=== PATIENT | female | born 2000 | race Caucasian/White ===

== ENCOUNTER 2021-12-24 10:20 | Inpatient (IN) | payer MEDICAID, SELFPAY ==
[2021-12-24] VITALS (31 sets, daily range): BP systolic 108–143; BP diastolic 55–84; PULSE 64–88; TEMP 36.3–36.8; O2SAT 81–100; BMI 36.0
[2021-12-24 10:24] LABS: ROM Internal Control Test YES-OK TO RESULT pt. (Internal QC)
[2021-12-24 10:31] LABS: ROM Patient Test POSITIVE (Negative)
--- NOTE | 2021-12-24 10:37 | PCM.HP.OB ---
HPI - General General Date of Admission: 12/24/21 HPI Narrative PAULETTE CAPPS, is a 21 F at 39.5 weeks gestation who presents to triage with leaking fluid and contractions. Patient reports water broke at 0830 and she continues to leak fluid. Positive movement. Reports irregular contractions. Maternal Data Information ANTHONY Calculator Estimated Delivery Date Method Current WG Current Estimate 12/26/21 Manual 39w 5d PFSH PFS Medical History (Updated 12/24/21 @ 13:14 by Ayla Ziegler CNM) Genital herpes affecting Home Medications acyclovir 400 mg PO TID 12/24/21 [History Last Taken 12/23/21 22:00] vit-iron fum-folic ac [Prena-Tab] 1 tab PO DAILY 12/24/21 [History Last Taken 12/23/21 10:00] Allergy/AdvReac Type Severity Reaction Status Date / Time Penicillins [PCN] Allergy Hives Verified 12/24/21 09:56 Surgical History History of surgery Social History Smoking Status: Never smoker History Elective abortions Hx Para 0 Spontaneous abortions Hx # Term Pregnancies Ectopic pregnancies Hx # Pregnancies Multiple births # of living children NST FHR Rate Baby A Baseline: 140 Variability:: Moderate Accelerations:: 15 x 15 Decelerations:: None NST Reactive:: Yes FHR Category:: Category I Uterine Activity:: 2-5 minutes ROS Eyes Eyes: Denies blurry vision, change in vision or spots in vision ENT HEENT: Denies dizziness or headache(s) Cardiovascular Cardiovascular: Denies abdominal pain, chest pain or dyspnea Respiratory/Chest Respiratory/Chest: Denies cough, dyspnea, shortness of breath at rest or shortness of breath with exertion Gastrointestinal Gastrointestinal: Denies abdominal pain, diarrhea or vomiting Genitourinary Genitourinary: Denies change in urinary stream, difficulty urinating or dysuria Musculoskeletal Musculoskeletal: Reports none Integumentary Integumentary: Denies rash Neurologic Neurologic: Denies dizziness, headache(s), memory loss or weakness Psychiatric Psychiatric: Reports none Vital Signs Vital Signs Vital Signs: 12/24/21 10:00 12/24/21 10:01 Temperature 97.6 F L Temperature Source Temporal Pulse Rate 86 86 Blood Pressure 123/74 H 123/74 H BP Systolic 123 123 BP Diastolic 74 74 Pulse Ox 98 Weight Weight: 203 lb 4.259 oz Body Mass Index (BMI) 36.0 Physical Exam Const alert, oriented x3 and no apparent distress General Appearance: cooperative Orientation / Consciousness: awake Exam Limitations: no limitations HEENT normocephalic Head and Scalp: normal to inspection Eyes General Eye: normal appearance of both eyes Neck full ROM and no lymphadenopathy Lymph Lymphatic: no lymphadenopathy noted Chest inspection of chest normal Resp normal respiratory effort, normal air movement and clear to auscultation bilaterally Effort and Inspection: able to speak in complete sentences and symmetric chest movement Cardio regular rate and regular rhythm GI normal to inspection, nondistended, normoactive bowel sounds Manual OB Exam: presentation cephalic, dilated 3, effaced 90 and station -1 Amniotic Fluid: meconium-stained Back/Spine normal ROM Extremity full ROM and no calf tenderness Skin no rashes or lesions noted General Skin Exam: no breakdown Neuro oriented x3 and CN's II-XII intact bilaterally Psych mental status grossly normal and thought process normal Labs Labs Labs: Blood Type A POSITIVE Antibody Screen NEGATIVE Hct 35.4 % (37-47) L Hgb 12.3 g/dL (12.0-15.0) Rubella- immune HB- neg HC- neg HIV- NR RPR- NR GBS- positive Assessment & Plan (1) 39 weeks gestation of : (2) Spontaneous rupture of amniotic membranes: (3) Meconium in amniotic fluid: (4) Positive GBS test: PLAN: Meconium stained fluid noted by RN CE- /-1 Cephalic Admit to labor and delivery Line Up Examiner notified Routine labs Start IV and run fluids per orders GBS positive- allergy to PCN, start Vancomycin IV q 8 hours during labor Hx. HSV- taking acyclovir prophylactically - no visual outbreak Epidural when indicated Dr. Ford notified of admission and is collaborating physician
[2021-12-24] MEDS: Lactated Ringers 1,000 ML 50 ML IV (10:40)
--- NOTE | 2021-12-24 10:43 | PCM.RX.CS ---
Consult Type of Consult: New start Suspected Infection: Other Goal Trough: 10-15 mcg/mL Pharmacy Plan for Drug Dosing: NEW START IV VANCOMYCIN Consulting Physician: Aleida AMAYA Indication: WP GBS Goal Trough: 10-15 SrCr: N/A CrCl: N/A Vancomcyin Dose: 1750mg (20 mg/kg) Q8H to start at 1100 12/24/21 Pending Level: Vancomycin trough @ 1030 12/25/21, if not yet delivered Pharmacy Service will continue to monitor and adjust dosing as required. Labs to be done on [date and time ordered]: Vancomycin trough @ 1030 12/25/21, if not yet delivered
[2021-12-24 10:54] LABS: Absolute Lymphocyte Count 1.25 X10^3/uL (0.83-4.51); Absolute Neutrophil Count 12.1 X10^3/uL (2.0-7.7); Basophil# 0.03 X10^3/uL; Basophil% 0.2 % (0-1); Eosinophil# 0.05 X10^3/uL; Eosinophils% 0.3 % (0-5); Hematocrit 35.4 % (37-47); Hemoglobin 12.3 g/dL (12.0-15.0); Lymphocyte # 1.25 X10^3/ul (0.83-4.51); Lymphocyte % 8.7 % (19-41); Mean Corp Hgb Conc 34.7 g/dL (32-36); Mean Corpuscular Volume 89.2 fL (81-99); Mean Platelet Vol. 11.8 fl (6.2-12.0); Monocyte# 0.84 X10^3/uL; Monocyte% 5.8 % (0-10); NRBC Flagged by Analyzer 0 % (0-5); Neutrophil # 12.14 X10^3/uL (2.7-7.7); Neutrophil % 84.4 % (47-70); Platelet Count 158 K/mm3 (150-450); RBC Distribution Width CV 12.8 % (11.6-14.6); RBC Distribution Width SD 41.2 fl (35.1-43.9); Red Blood Count 3.97 M/mm3 (4.2-5.4); White Blood Count 14.4 K/mm3 (4.4-11.0)
--- NOTE | 2021-12-24 17:00 | PCM.PN.OB ---
Subjective Subjective Patient seen at bedside. Breathing through contractions. Using Nitrous oxide for pain control. Objective Data Objective Data Vital Signs: Vital Signs Temp Pulse BP Pulse Ox 98.1 F 78 138/60 H 100 12/24/21 16:03 12/24/21 17:02 12/24/21 17:00 12/24/21 17:02 Weight: 203 lb 4.259 oz Body Mass Index (BMI) 36.0 Intake & Output: Intake and Output for Last 24 Hours 12/22/21 12/23/21 12/24/21 23:59 23:59 23:59 Intake Total 551.67 / 551.67 Balance 551.67 / 551.67 Lab / Micro Data Result Diagrams: 12/24/21 10:35 Labs: Laboratory Results - last 24 hr 12/24/21 10:15: Vag Amniotic Fld Detect POSITIVE H 12/24/21 10:35: WBC 14.4 H, RBC 3.97 L, Hgb 12.3, Hct 35.4 L, MCV 89.2, MCH 31.0, MCHC 34.7, RDW Std Deviation 41.2, RDW Coeff of Stef 12.8, Plt Count 158, MPV 11.8, Immature Gran % (Auto) 0.600, Neut % (Auto) 84.4 H, Lymph % (Auto) 8.7 L, [place] % (Auto) 5.8, Eos % (Auto) 0.3, Baso % (Auto) 0.2, Absolute Neuts (auto) 12.1 H, Absolute Lymphs (auto) 1.25, Nucleated RBC % 0 12/24/21 10:35: Blood Type A POSITIVE, Antibody Screen NEGATIVE Micro: Microbiology 12/24/21 10:25 Nasal Secretion SARS-CoV-2 Antigen (Rapid) - Final ROS Eyes Eyes: Denies blurry vision, change in vision or spots in vision ENT HEENT: Denies dizziness or headache(s) Cardiovascular Cardiovascular: Denies abdominal pain, chest pain or dyspnea Respiratory/Chest Respiratory/Chest: Denies cough, dyspnea, shortness of breath at rest or shortness of breath with exertion Gastrointestinal Gastrointestinal: Denies abdominal pain, diarrhea or vomiting Genitourinary Genitourinary: Denies change in urinary stream, difficulty urinating or dysuria Musculoskeletal Musculoskeletal: Reports none Integumentary Integumentary: Denies rash Neurologic Neurologic: Denies dizziness, headache(s), memory loss or weakness Psychiatric Psychiatric: Reports none Physical Exam Const alert and no apparent distress General Appearance: cooperative and comfortable Exam Limitations: no limitations HEENT normocephalic Eyes General Eye: normal appearance of both eyes Neck full ROM General: normal visual inspection Chest Chest: symmetrical chest wall rise Resp normal respiratory effort and normal air movement Effort and Inspection: symmetric chest movement Auscultation: clear to auscultation bilaterally Cardio regular rate and regular rhythm GI normal to inspection, nondistended, normoactive bowel sounds Back/Spine normal ROM Extremity full ROM and no calf tenderness General Extremity: normal exam except as noted Skin no rashes or lesions noted Neuro CN's II-XII intact bilaterally Psych mental status grossly normal Assessment & Plan (1) Genital herpes affecting : QUALIFIERS: Trimester: unspecified trimester Qualified Code(s): O98.319 - Other infections with a predominantly sexual mode of transmission complicating , unspecified trimester; A60.09 - Herpesviral infection of other urogenital tract (2) Positive GBS test: (3) Meconium in amniotic fluid: (4) Spontaneous rupture of amniotic membranes: (5) 39 weeks gestation of : PLAN: CE- /0 Cat. 1 tracing- some periods of mild variability, no decelerations Continue present position changes Continue Nitrous oxide for pain control Anticipate
[2021-12-24] MEDS: Oxytocin 30 units/NS 500 ml 30 UNITS/500 ML IV.SOLN 334 UNITS IV (18:32)
--- NOTE | 2021-12-24 18:41 | CPS ---
Dayshift RT responded to WP first and was present for 35 minutes. Nightshift RT relieved dayshift @1820.
--- NOTE | 2021-12-24 19:16 | OP.PCM_ITS ---
Assessment & Plan (1) (spontaneous vaginal delivery): (2) Laceration, obstetrical, first degree: Maternal Data Information ANTHONY Calculator Estimated Delivery Date Method Current WG Current Estimate 12/26/21 Manual 39w 5d Vaginal Delivery Maternal Presentation Maternal Presentation: Spontaneous Rupture of Membranes Maternal Presentation: at 39.5 weeks gestation that presented with spontaneous rupture of membranes and spontaneous labor. Operative Information Date of Procedure: 12/24/21 Pre-Operative Diagnosis: Term gestation, spontaneous rupture of membranes, spontaneous labor Post-Operative Diagnosis: Same, live female infant Surgery / Procedure Performed: Spontaneous Vaginal Delivery Type of Anesthesia: Local with 1% Lidocaine Estimated Blood Loss: 250 Time of Delivery: 18:28 Findings Description of Procedure: Provided bedside support to patient with pushing. With maternal effort, head delivered followed immediately by anterior shoulder and remainder of body with minimal, easy downward traction. Vigorous female placed on maternal abdomen and was attended to by nursing staff and data governance analyst. Pitocin IV started for active management of the third stage of labor. Cord clamped and cut by FOB after 3 minute delay. Infant placed immediately skin to skin with patient. Placenta delivered spontaneously and intact. 3 vessel cord. Meconium stained placenta. Dr. Ford called to bedside to assess vaginal laceration due to laceration apex being close to clitoral maldonado. First degree vaginal laceration repaired in usual fashion after placing local anesthesia. Hemostasis obtained. Fundus firm 3 below U. EBL 250 cc. Patient and boding well at this time. Presentation: Vertex Amniotic Membrane Rupture Type: Spontaneous Time of Membrane Rupture: 0830 Amniotic Fluid Description: Moderate meconium Placental Delivery Description: Spontaneous Placenta Disposition: [facility] Cord Vessel Description: 3 Vessels Cord Entanglement: None A Gender: Female (1 minute): 8 (5 minute): 9 Delayed Cord Clamping: Yes Post Vaginal Delivery Medications Given After Delivery: IV Pitocin Episiotomy Description: None Laceration: 1st degree Complication Complications: None
[2021-12-24] MEDS: Naproxen 500 MG Tablet PO (20:52)
[2021-12-24] MEDS: Benzocaine/Lanolin/Aloe Vera 1 SPRAY EACH TOPICAL (20:52)
[2021-12-25] VITALS (15 sets, daily range): BP systolic 109–127; BP diastolic 55–72; PULSE 69–87; RESP 16–17; TEMP 36.3–36.8; O2SAT 96–99
--- NOTE | 2021-12-25 07:02 | PCM.PN.OB ---
Subjective Subjective Patient seen at bedside. infant. Ambulating and voiding without difficulty. Lochia decreasing. Desires discharge home tomorrow due to needing more support. Objective Data Objective Data Vital Signs: Vital Signs Temp Pulse Resp BP Pulse Ox 97.8 F 69 16 109/55 L 98 12/25/21 04:00 12/25/21 04:31 12/25/21 04:00 12/25/21 04:31 12/25/21 04:31 Oxygen Delivery Method Room Air Weight: 203 lb 4.259 oz Body Mass Index (BMI) 36.0 Intake & Output: Intake and Output for Last 24 Hours 12/23/21 12/24/21 12/25/21 23:59 23:59 23:59 Intake Total 2835.00 / 2835.00 Output Total 300 / 300 600 / 600 Balance 2535.00 / 2535.00 -600 / -600 Lab / Micro Data Result Diagrams: 12/24/21 10:35 Labs: Laboratory Results - last 24 hr 12/24/21 10:15: Vag Amniotic Fld Detect POSITIVE H 12/24/21 10:35: WBC 14.4 H, RBC 3.97 L, Hgb 12.3, Hct 35.4 L, MCV 89.2, MCH 31.0, MCHC 34.7, RDW Std Deviation 41.2, RDW Coeff of Stef 12.8, Plt Count 158, MPV 11.8, Immature Gran % (Auto) 0.600, Neut % (Auto) 84.4 H, Lymph % (Auto) 8.7 L, [place] % (Auto) 5.8, Eos % (Auto) 0.3, Baso % (Auto) 0.2, Absolute Neuts (auto) 12.1 H, Absolute Lymphs (auto) 1.25, Nucleated RBC % 0 12/24/21 10:35: Blood Type A POSITIVE, Antibody Screen NEGATIVE Micro: Microbiology 12/24/21 10:25 Nasal Secretion SARS-CoV-2 Antigen (Rapid) - Final ROS Eyes Eyes: Denies blurry vision, change in vision or spots in vision ENT HEENT: Denies dizziness or headache(s) Cardiovascular Cardiovascular: Denies abdominal pain, chest pain or dyspnea Respiratory/Chest Respiratory/Chest: Denies cough, dyspnea, shortness of breath at rest or shortness of breath with exertion Gastrointestinal Gastrointestinal: Denies abdominal pain, diarrhea or vomiting Genitourinary Genitourinary: Denies change in urinary stream, difficulty urinating or dysuria Musculoskeletal Musculoskeletal: Reports none Integumentary Integumentary: Denies rash Neurologic Neurologic: Denies dizziness, headache(s), memory loss or weakness Physical Exam Const alert and no apparent distress General Appearance: cooperative and comfortable Exam Limitations: no limitations HEENT normocephalic Eyes General Eye: normal appearance of both eyes Neck full ROM General: normal visual inspection Chest Chest: symmetrical chest wall rise Resp normal respiratory effort and normal air movement Effort and Inspection: symmetric chest movement Auscultation: clear to auscultation bilaterally Cardio regular rate and regular rhythm GI normal to inspection, nondistended, normoactive bowel sounds Back/Spine normal ROM Extremity full ROM and no calf tenderness General Extremity: normal exam except as noted Skin no rashes or lesions noted Neuro CN's II-XII intact bilaterally Psych mental status grossly normal Assessment & Plan (1) Laceration, obstetrical, first degree: (2) (spontaneous vaginal delivery): PLAN: PPD 1 Routine care support Anticipate discharge home tomorrow
[2021-12-25] MEDS: Naproxen 500 MG Tablet PO ×2 (07:47→17:36)
[2021-12-25] MEDS: Senna/Docusate Sodium 1 Tablet PO (07:47)
--- NOTE | 2021-12-25 08:17 | NURSING ---
This RN at bedside for assessment with student nurse and agrees with his assessment and vital signs
[2021-12-25] MEDS: Acetaminophen 500 MG Tablet 1000 MG PO (12:27)
[2021-12-26 02:12] VITALS: BP 116/65; PULSE 74; RESP 18
--- NOTE | 2021-12-26 08:21 | PCM.PROGNOTE ---
Subjective Subjective Patient seen at bedside, doing well. Patient reports good pain control. Mild lochia. Breast-feeding without concerns. Voiding without difficulty. Patient ready for DC home today. Objective Data Objective Data Vital Signs: Vital Signs Temp Pulse Resp BP Pulse Ox 98.2 F 74 18 116/65 98 12/25/21 20:51 12/26/21 02:12 12/26/21 02:12 12/26/21 02:12 12/25/21 12:24 Oxygen Delivery Method Room Air Weight: 92.2 kg Body Mass Index (BMI) 36.0 Intake & Output: Intake and Output for Last 24 Hours 12/24/21 12/25/21 12/26/21 23:59 23:59 23:59 Intake Total 2835.00 / 2835.00 Output Total 300 / 300 600 / 600 Balance 2535.00 / 2535.00 -600 / -600 Lab / Micro Data Result Diagrams: 12/24/21 10:35 Micro: Microbiology 12/24/21 10:25 Nasal Secretion SARS-CoV-2 Antigen (Rapid) - Final Physical Exam Const alert and oriented x3 General Appearance: cooperative HEENT normocephalic Neck General: normal visual inspection GI soft to palpation and non-distended GI Narrative: Fundus firm Extremity normal to inspection and no calf tenderness Skin no rashes or lesions noted Neuro oriented x3 and CN's II-XII intact bilaterally Psych mental status grossly normal Assessment & Plan Assessment/Plan (1) Laceration, obstetrical, first degree: (2) (spontaneous vaginal delivery): PLAN: PPD#2 , Doing well Routine care pain mgmt ambulation dc home
[2021-12-26 08:22] VITALS: BP 137/75; PULSE 64; PULSE 65; RESP 16; TEMP 36.6; O2SAT 82; O2SAT 98
--- NOTE | 2021-12-26 08:24 | PCM.DC ---
Discharge Instructions Diet Discharge Diet: No restrictions Activity May resume sexual activity in: 6-8 weeks Dressing / Incision Call your doctor if you observe: Fever of 101 or Higher, Inability to urinate, Using more than 1 pad per hour and Uncontrolled pain Follow Up Care Please Follow Up With: Donna Monae MD When: 1-2 weeks post and again at 6 weeks post . [phone] Test Results: Test results from this visit will be discussed in further detail at your follow-up appointment, if applicable. Discharge Plan Admission Admit Date/Time: 12/24/21 10:20 Attending Provider: Ayla Ziegler Primary Care Provider: Care Physician,No Primary Discharge Orders/Prescriptions Prescriptions: Continued vit-iron fum-folic ac 65 mg iron- 1 mg Tablet 1 tab PO DAILY RF: 0 acyclovir 400 mg Tablet 400 mg PO TID RF: 0 Referrals / Follow Up: Care Physician,No Primary [Primary Care Provider] - Disposition Disposition (needs filled in before D/C Order can be placed): Home, Self Care
== END 2021-12-26 11:40 | disposition home or self-care (01) | DRG 560 ==
LOC: WPOUT 10:22 → WP 10:22
PROVIDERS: Admitting Provider Advanced Practice Midwife; Referring Provider Advanced Practice Midwife; Visit Provider Advanced Practice Midwife
DX: O99.824 Streptococcus B carrier state complicating childbirth (principal); Z37.0 Single live birth; O98.32 Other infections with a predominantly sexual mode of transmission complicating childbirth; A60.00 Herpesviral infection of urogenital system, unspecified; O77.0 Labor and delivery complicated by meconium in amniotic fluid; O70.0 First degree perineal laceration during delivery; Z20.822 Contact with and (suspected) exposure to COVID-19; Z3A.39 39 weeks gestation of pregnancy; Z79.899 Other long term (current) drug therapy
CPT/HCPCS: 59025; 59050; 84112; 85025; 86850; 86900; 86901; 87426; 94799; 99218; 99251; J7040; J7120; G0378; G0463

== ENCOUNTER 2023-10-05 06:20 | Inpatient (IN) | payer MEDICAID, SELFPAY ==
[2023-10-05] VITALS (40 sets, daily range): BP systolic 103–120; BP diastolic 56–75; PULSE 64–97; RESP 16; TEMP 36.7–37.2; O2SAT 98–100; BMI 35.6
--- OUTSIDE RECORDS SUMMARY | 2023-10-05 06:14 | XMS RPT_ITS | CCD ---
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 look at the ingredients to be sure. Note that there is no difference between red raspberry leaf and raspberry leaf. [employer] or [employer] Raspberry Three Bridges Tea are two good brands. The red raspberry leaf teas that we recommend are 100% red raspberry leaf. Other teas labeled as raspberry are often a blend of rosehips, hibiscus, raspberry leaves, and raspberry flavor. So they may not be as effective. The teas to avoid are raspberry-flavored herbal teas, which may have ingredients like hibiscus, peri hips, apples, elderberries, natural and artificial raspberry flavors. Teas like this don t contain raspberry leaf at all and thus won t offer any of the potential benefits of RRLT outlined in this article. The Circle 1 Network Circuit www.SmartDocs (Teknowmics) I named this 'circuit' after my friend Angelanano Carcamo, who shared and discussed it with me when I was working with a client whose labor seemed to be stalled out and no longer progressing... This circuit is useful to help get the baby lined up, ideally, in the Left Occiput Anterior (CRICKET) Position, both before labor begins and when some corrections need to be done during labor. Prenatally, this position set can help to rotate a baby. As a natural method of induction, this can help get things going if baby just needed a gentle nudge of position to set things off. To the best of my knowledge, this group of positions will not hurt a baby that is already lined up correctly. - Rachel Hassan Before you Begin..... This circuit takes at least 90 minutes to complete so clear your schedule and make mental preparations so you can relax in your environment. The second step requires a lot of pillows so gather them up before beginning Before starting, you should empty your bladder! Have a nice drink nearby, and make sure it has a straw! If you are having contractions, this circuit should bedone through contractions, try not to change positions between steps Step One: Open-knee Chest Stay in this position for 30 minutes, start in cat/cow, then drop your chest as low as you can to the bed or the floor and your bottom as high as you can. Knees should be fairly wide apart, and the angle between the torso/thighs should be wider than 90 degrees. Wiggle around, prop with lots of pillows and use this time to get totally relaxed. This position allows the baby to scoot out of the pelvis a bit and gives them room to rotate, shift their head position, etc. If the person finds it helpful,careful positioning with a rebozo under the belly, with gentle tension from a support person behindcan help maintain this position for the full 30minutes. Step Two: Exaggerated Left Side Lying Roll to your left side, bringing your top leg as high as possible and keeping your bottom leg straight. Roll forward as much as possible,again using a lot of pillows. Sink into the bed and relax some more. If you fall asleep, that's totally okay and you can stay there! If not, stay here for at least another half an hour. Try and get your top right leg up towards your head and get as rolled over onto your belly as much as possible. If you repeat the circuit during labor, try alternating left and right sides. We know the photo the left is actually right side... just flip the image in your head. Step Three: Moving and Lunges Lunge, walk stairs facing sideways, 2 at a time, (have a machine deburrer downstairs of you!), take a walk outside with one foot on the curb and the other on the street, sit on a ball and hula- anything that's upright and putting your pelvis in open, asymmetrical positions. Spend at least 30 minutes doing this one as well to give your baby a chance to move down. If you are lunging or stair or curb walking, you should lunge/walk/go up stairs in the direction that feels better to you. The villegas with the lunge is that the toes of the higher leg and mom's belly button should be at right angles. Do not lunge over your knee, that closes the pelvis. Angela Lancaster Carlos Alberto: Circuit Creator - www.essentia healthcollective.c blas Hassan, MILAGRO, BDT (RALPH), LCCE, FACCE: Supporting Content - www.rachelSolar Power Partnersedward.[employer] Awa Alberto: Photography - www.[email or web address].[employer] Soo Parekh CD/CDT (SULEMAN): Print and Technician Support Engineer - www.[employer] Masterminds The Circle 1 Network Circuit www.SmartDocs (Teknowmics) SEQUENTIAL SCREENINGS The [facility] offers sequential screenings for women who are interested in screenings for chromosomal abnormalities and certain defects during a . The sequential screen combines ultrasound and blood tests to determine the risk of chromosomal abnormalities, including Down's Syndrome (Trisomy 21) and Trisomy 18, as well as open neural tube defects including spina bifida. Ultrasound examination is performed between 11 weeks and 13 weeks gestational age. Blood tests are drawn after the ultrasound and again later in the between 15 and 21 weeks gestational age. Please let your physician know if you are interested in this testing. It will require an appointment with our electromedical equipment technician. This is not an ultrasound performed by a physician in our office during a routine visit. SIGNS AND SYMPTOMS OF LABOR 1. Contractions every 10 minutes or more often 2. Clear, pink, or brownish fluid (water) leaking from vagina 3. Feeling that baby is pushing down, pressure 4. Low, dull backache 5. Cramps that feel like a period 6. Cramps with or without diarrhea If you notice any of the above symptoms, contact our office at [phone] and ask to speak with a nurse. After hours, you can call doctors registry at [phone] OR call [facility] at [phone] and ask to have the doctor admissions dean paged. If you consider this an emergency, dial 9-1-4 or go to your nearest emergency department. NEED HELP? Are you dealing with a violent or abusive relationship? Are you a victim of rape or sexual assult? Call [facility] ([place]) 24 hour Crisis Hotline: 416.390.3397 or 707-335-1778. MANUAL Your Guide to a Healthy manual is now on-line. Visit [email or web address] [email or web address] to download your free copy documented in this encounter [facility] 09-29-2023 Note HNO ID: [id number] Author: ?, ?, ? Service: ? Author Type: ? 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 Updated OB/PEDS field. OB/PEDS Patient Identified by Name and : YES, via phone Outreach Outcome/Action OB/PEDS field updated Did you use a PCP flex slot to schedule this appointment? N/A Navigation Signature: Vidhi Morin [facility] September 29, 2023 12:25 PM [facility] 09-29-2023 Note HNO ID: [id number] Author: ?, ?, ? Service: ? Author Type: ? Type: Progress Notes Filed: 09/29/2023 12:03 Note Text: POPULATION HEALTH NAVIGATION OUTREACH Action/FYI 3rd attempt- Called and left another voicemail for patient to call me back directly. OB/PEDS Patient Identified by Name and : NO Outreach Outcome/Action Unable to reach patient: Left message Did you use a PCP flex slot to schedule this appointment? N/A Navigation Signature: Vidhi Morin [facility] September 29, 2023 12:00 PM [facility] 09-26-2023 Note Patient Outreach (IMELDA GARCIA) PAULETTE MUHAMMAD ([id number]) 89 F Date Time Provider Department 09/26/23 VIDHI MORIN ([facility]) BEATAV During your visit today, we recorded the following information about you: Vidhi Samayoa 09/26/2023 11:40 AM Signed POPULATION HEALTH NAVIGATION OUTREACH Action/FYI Called and left a voicemail for patient to call me back directly Mychart message sent OB/PEDS Patient Identified by Name and : NO Outreach Outcome/Action Unable to reach patient: Left message MyChart message sent Did you use a PCP flex slot to schedule this appointment? N/A Reason for Outreach Payer: Payor: [facility] MEDICAID / Plan: [employer]ICA[employer] [place] / Product Type: Medicaid / Care Gap Reviewed:: N/A Reminder: Reminder note to check Health Maintenance for items below Health Maintenance items due: HPV Vaccine(2 - 2-dose series) due on 09/23/2012 Meningococcal B Vaccine: Consider Based On Risk(1 of 2 - Patient Seeks Protection) Never done DTaP,Tdap,Td Vaccine(7 - Td or Tdap) due on 03/23/2022 Depression Assessment due on 08/01/2023 Navigation Signature: Vidhi Reynolds September 26, 2023 11:40 AM Vidhi Samayoa 09/29/2023 12:03 PM Signed POPULATION HEALTH NAVIGATION OUTREACH Action/I 3rd attempt- Called and left another voicemail for patient to call me back directly. OB/PEDS Patient Identified by Name and : NO Outreach Outcome/Action Unable to reach patient: Left message Did you use a PCP flex slot to schedule this appointment? 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 Updated OB/PEDS field. OB/PEDS Patient Identified by Name and : YES, via phone Outreach Outcome/Action OB/PEDS field updated Did you use a PCP flex slot to schedule this appointment? N/A Navigation Signature: Vidhi Reynolds September 29, 2023 12:25 PM Allergies As of Date: 09/26/2023 Noted Allergy Reaction PENICILLINS 05/11/2021 4 - Hives Comments: childhood reaction Date Reviewed: 09/26/2023 Reviewed by: Vidhi Palacios MA - Fully Assessed Reason for Visit: Population Health Navigation Outreach [3910] Cmt: OB/PEDS Prescriptions as of 09/29/2023 - famotidine (PEPCID) 20 mg tablet Take 1 tablet by mouth two times a day. - acyclovir (ZOVIRAX) 400 mg tablet Take 1 tablet by mouth three times a day. - multivitamin (CLASSIC ) 28 mg iron- 800 mcg tab(s) Take 1 tablet by mouth once daily. Problem List As Of Date 09/26/2023 Noted Resolved History of herpes genitalis [Z86.19] 05/11/2021 Patient request for diagnostic testing [Z01.89] 05/11/2021 03/21/2023 Encounter for supervision of high risk pregnanc*11/04/2021 Positive GBS test [B95.1] 12/11/2021 03/21/2023 Obesity (BMI 30.0-34.9) [E66.9] 03/21/2023 Rubella non-immune status, antepartum [O09.899,*04/06/2023 Elevated glucose [R73.09] 07/20/2023 Obesity during in third trimester [O9*08/29/2023 Positive GBS test [B95.1] 09/13/2023 Encounter Status:Closed by VIDHI SAMAYOA on 09/26/23 [facility] 09-26-2023 Note HNO ID: [id number] Author: ?, ?, ? Service: ? Author Type: ? Type: Progress Notes Filed: 09/26/2023 11:40 Note Text: POPULATION HEALTH NAVIGATION OUTREACH Action/FYI Called and left a voicemail for patient to call me back directly Echo ithart message sent OB/PEDS Patient Identified by Name and : NO Outreach Outcome/Action Unable to reach patient: Left message [employer],Inchart message sent Did you use a PCP flex slot to schedule this appointment? N/A Reason for Outreach Payer: Payor: [place] / Plan: [place] [employer] MEDICA[facility] / Product Type: Medicaid / Care Gap Reviewed:: N/A Reminder: Reminder note to check Health Maintenance for items below Health Maintenance items due: HPV Vaccine(2 - 2-dose series) due on 09/23/2012 Meningococcal B Vaccine: Consider Based On Risk(1 of 2 - Patient Seeks Protection) Never done DTaP,Tdap,Td Vaccine(7 - Td or Tdap) due on 03/23/2022 Depression Assessment due on 08/01/2023 Navigation Signature: Vidhi Reynolds September 26, 2023 11:40 AM [facility] 09-19-2023 Miscellaneous Notes SW- Some nausea and abdominal discomfort. No vb, lof, ctx's. Good FM PE: Gen- NAD, well appearing Abd- Soft, gravid, NT Ext- No edema See flowsheet A/p 37 wk gestation - Start pepcid - Cont acyclvor - Weekly visits and reviewed reasons to call Korey Jones DO documented in this encounter [facility] 09-19-2023 Instructions Shanel Rincon Ma - 09/19/2023 10:40 AM EST SEQUENTIAL SCREENINGS The [facility] offers sequential screenings for women who are interested in screenings for chromosomal abnormalities and certain defects during a . The sequential screen combines ultrasound and blood tests to determine the risk of chromosomal abnormalities, including Down's Syndrome (Trisomy 21) and Trisomy 18, as well as open neural tube defects including spina bifida. Ultrasound examination is performed between 11 weeks and 13 weeks gestational age. Blood tests are drawn after the ultrasound and again later in the between 15 and 21 weeks gestational age. Please let your physician know if you are interested in this testing. It will require an appointment with our electromedical equipment technician. This is not an ultrasound performed by a physician in our office during a routine visit. SIGNS AND SYMPTOMS OF LABOR 1. Contractions every 10 minutes or more often 2. Clear, pink, or brownish fluid (water) leaking from vagina 3. Feeling that baby is pushing down, pressure 4. Low, dull backache 5. Cramps that feel like a period 6. Cramps with or without diarrhea If you notice any of the above symptoms, contact our office at [phone] and ask to speak with a nurse. After hours, you can call doctors registry at [phone] OR call [facility] at [phone] and ask to have the doctor admissions dean paged. If you consider this an emergency, dial 6-1-8 or go to your nearest emergency department. NEED HELP? Are you dealing with a violent or abusive relationship? Are you a victim of rape or sexual assult? Call [facility] [place] ([facility] 24 hour Crisis Hotline: 389.764.6966 or 166-441-8358. MANUAL Your Guide to a Healthy manual is now on-line. Visit [email or web address] [email or web address] to download your free copy documented in this encounter [facility] 09-12-2023 Miscellaneous Notes S: Paulette Muhammad is a 22 year old female who presents at 36 weeks 0 days, ANTHONY 10/10/2023, by Last Menstrual Period for a routine visit. Denies headache, visual changes, chest pain, shortness of breath, vaginal bleeding, leakage of fluid, or dysuria. Feeling well, no complaints. O: See flow sheet Gen: No apparent distress Abd: Gravid, nontender TWG 19 lb S=D Bedside US to confirm cephalic presentation ASSESSMENT/PLAN: 1. Encounter for supervision of high risk in third trimester, antepartum - 2. Obesity during in third trimester - 3. 36 weeks gestation of 4. 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 I have re-performed the HPI, Physical Examination, Assessment and Plan. Elzbieta Echavarria APRN.CNM documented in this encounter [facility] 09-12-2023 Instructions Rafael Miller Cma 09/12/2023 9:17 AM EST SEQUENTIAL SCREENINGS The [facility] offers sequential screenings for women who are interested in screenings for chromosomal abnormalities and certain defects during a . The sequential screen combines ultrasound and blood tests to determine the risk of chromosomal abnormalities, including Down's Syndrome (Trisomy 21) and Trisomy 18, as well as open neural tube defects including spina bifida. Ultrasound examination is performed between 11 weeks and 13 weeks gestational age. Blood tests are drawn after the ultrasound and again later in the between 15 and 21 weeks gestational age. Please let your physician know if you are interested in this testing. It will require an appointment with our electromedical equipment technician. This is not an ultrasound performed by a physician in our office during a routine visit. SIGNS AND SYMPTOMS OF LABOR 1. Contractions every 10 minutes or more often 2. Clear, pink, or brownish fluid (water) leaking from vagina 3. Feeling that baby is pushing down, pressure 4. Low, dull backache 5. Cramps that feel like a period 6. Cramps with or without diarrhea If you notice any of the above symptoms, contact our office at [phone] and ask to speak with a nurse. After hours, you can call doctors registry at [phone] OR call [facility] at [phone] and ask to have the doctor admissions dean paged. If you consider this an emergency, dial 9-5 or go to your nearest emergency department. NEED HELP? Are you dealing with a violent or abusive relationship? Are you a victim of rape or sexual assult? Call [facility] ([place]) 24 hour Crisis Hotline: 519.475.2672 or 903-800-6453. MANUAL Your Guide to a Healthy manual is now on-line. Visit [email or web address] to download your free copy documented in this encounter [facility] 07-20-2023 Miscellaneous Notes Addended by: DONNA RAINES on: 07/20/2023 11:19 AM Modules accepted: Orders DM-Pt doing well. Denies vaginal Bleeding, Leaking fluid, or regular Contractions. Pt reports good movement Physical Exam: Gen: female in no apparent distress Abd: soft, Gravid. Non tender to palpation. See flow sheet A/P: @ 28.2 weeks 1) declines tdap 2) larc form signed and declined 3) Labs today 4) RTO 2 wks 5) Kick counts reviewed 6) growth us 32 weeks Donna Monae MD documented in this encounter [facility] 07-20-2023 Instructions Tricia Mello Ma - 07/20/2023 10:57 AM EST SEQUENTIAL SCREENINGS The [facility] offers sequential screenings for women who are interested in screenings for chromosomal abnormalities and certain defects during a . The sequential screen combines ultrasound and blood tests to determine the risk of chromosomal abnormalities, including Down's Syndrome (Trisomy 21) and Trisomy 18, as well as open neural tube defects including spina bifida. Ultrasound examination is performed between 11 weeks and 13 weeks gestational age. Blood tests are drawn after the ultrasound and again later in the between 15 and 21 weeks gestational age. Please let your physician know if you are interested in this testing. It will require an appointment with our electromedical equipment technician. This is not an ultrasound performed by a physician in our office during a routine visit. SIGNS AND SYMPTOMS OF LABOR 1. Contractions every 10 minutes or more often 2. Clear, pink, or brownish fluid (water) leaking from vagina 3. Feeling that baby is pushing down, pressure 4. Low, dull backache 5. Cramps that feel like a period 6. Cramps with or without diarrhea If you notice any of the above symptoms, contact our office at [phone] and ask to speak with a nurse. After hours, you can call doctors registry at [phone] OR call [facility] at [phone] and ask to have the doctor admissions dean paged. If you consider this an emergency, dial 0-6-3 or go to your nearest emergency department. NEED HELP? Are you dealing with a violent or abusive relationship? Are you a victim of rape or sexual assult? Call [facility] ([place]) 24 hour Crisis Hotline: 480.717.6067 or 538-342-8184. MANUAL Your Guide to a Healthy manual is now on-line. Visit [email or web address] [email or web address] to download your free copy documented in this encounter [facility] 06-20-2023 Miscellaneous Notes S: Paulette Muhammad is a 22 year old female who presents at 24 weeks gestation for a routine visit. Positive movement. Denies headache, visual changes, chest pain, shortness of breath, vaginal bleeding, leakage of fluid, or dysuria. Feeling well, no complaints. O: See flow sheet Gen: No apparent distress Abd: Gravid, nontender ASSESSMENT/PLAN: 1. 24 weeks gestation of - ICD9: V22.2, ICD10: Z3A.24 (primary diagnosis) 2. Encounter for supervision of other normal in second trimester - ICD9: V22.1, ICD10: Z34.82 P: 1) PTL precautions reviewed and when to call 2) RTO 4 weeks for LILIYA with labs Ayla Amaya APRN.CNM documented in this encounter [facility] 06-20-2023 Instructions Vidhi Palacios MA - 06/20/2023 11:08 AM EST SEQUENTIAL SCREENINGS The [facility] offers sequential screenings for women who are interested in screenings for chromosomal abnormalities and certain defects during a . The sequential screen combines ultrasound and blood tests to determine the risk of chromosomal abnormalities, including Down's Syndrome (Trisomy 21) and Trisomy 18, as well as open neural tube defects including spina bifida. Ultrasound examination is performed between 11 weeks and 13 weeks gestational age. Blood tests are drawn after the ultrasound and again later in the between 15 and 21 weeks gestational age. Please let your physician know if you are interested in this testing. It will require an appointment with our electromedical equipment technician. This is not an ultrasound performed by a physician in our office during a routine visit. SIGNS AND SYMPTOMS OF LABOR 1. Contractions every 10 minutes or more often 2. Clear, pink, or brownish fluid (water) leaking from vagina 3. Feeling that baby is pushing down, pressure 4. Low, dull backache 5. Cramps that feel like a period 6. Cramps with or without diarrhea If you notice any of the above symptoms, contact our office at [phone] and ask to speak with a nurse. After hours, you can call doctors registry at [phone] OR call [facility] at [phone] and ask to have the doctor admissions dean paged. If you consider this an emergency, dial [phone]- or go to your nearest emergency department. NEED HELP? Are you dealing with a violent or abusive relationship? Are you a victim of rape or sexual assult? Call [facility] ([place]) 24 hour Crisis Hotline: 636.167.8818 or 227-520-6935. MANUAL Your Guide to a Healthy manual is now on-line. Visit [email or web address] [email or web address] to download your free copy documented in this encounter [facility] 06-14-2023 Note HNO ID: [id number] Author: Blade Fabian APRN.CIRCUIT BOARD REPAIR TECHNICIAN Service: ? Author Type: Nurse Practitioner Type: Progress Notes Filed: 06/14/2023 1:27 PM Note Text: Chief Complaint Patient presents with: [facility] CARRIE Paulette Muhammad is a 22 year old female who presents here today for Above Complaints.. [facility]. Patient is currently 23 weeks and has a 1.5 year old. Patient reports she is feeling better now that she is in her second trimester. Past medical history, appointments, medications, allergies reviewed. Previous Medical History PAST MEDICAL HISTORY Diagnosis Date Herpes, genital Rubella non-immune status, antepartum 04/06/2023 Previous Surgical History PAST SURGICAL HISTORY Procedure Laterality Date TONSILLECTOMY HX Family History FAMILY HISTORY Problem Relation Age of Onset No Known Problems Mother No Known Problems Father No Known Problems Sister No Known Problems Sister No Known Problems Brother No Known Problems Maternal Grandmother No Known Problems Maternal Grandfather No Known Problems Paternal Grandmother No Known Problems Paternal Grandfather Patient Allergies ALLERGIES Allergen Reactions Penicillins Hives childhood reaction Current Medications Current Outpatient Medications on File Prior to Visit Medication Sig psyllium husk (METAMUCIL ORAL) Take by mouth. OMEPRAZOLE ORAL Take by mouth as needed. multivitamin (CLASSIC ) 28 mg iron- 800 mcg tab(s) Take 1 tablet by mouth once daily. No current facility-administered medications on file prior to visit. Social History Social History Tobacco Use Smoking status: Never Smokeless tobacco: Never Vaping Use Vaping Use: Never used Substance Use Topics Alcohol use: Yes Comment: rare Drug use: Never Review of Symptoms REVIEW OF SYSTEMS GENERAL: No weight loss, malaise or fevers HEENT: No changes in hearing or vision, no nose bleeds or other nasal problems NECK: Negative for lumps, goiter, pain and significant neck swelling RESPIRATORY: Negative for cough, hemoptysis, wheezing, COPD, dyspnea or shortness of breath CARDIOVASCULAR: Negative for chest pain, leg swelling, hypertension, CHF or palpitations GI: No nausea, vomiting, or diarrhea : No history of dysuria, frequency or incontinence GAMEMASTER: Negative for abnormal vaginal bleeding, abnormal vaginal discharge MUSCULOSKELETAL: Negative for joint pain or swelling, back pain or muscle pain SKIN: Negative for lesions, rash, and itching PSYCH: Negative for sleep disturbance, mood disorder and recent psychosocial stressors HEMATOLOGY/LYMPHOLOGY: Negative for prolonged bleeding, bruising easily or swollen nodes ENDOCRINE: Negative for cold or heat intolerance, polyuria, polydipsia and goiter NEURO: No history of headaches, syncope, paralysis, seizures or tremors EXAM: BP 112/70 Pulse 80 Resp 14 Wt 82.1 kg (181 lb) LMP 01/03/2023 (Within Days) BMI 32.06 kg/m? General Appearance: Well appearing, alert, in no acute distress, well-hydrated, well nourished.. Skin: Skin color, texture, turgor normal, no suspicious rashes or lesions. Neck: Supple, no adenopathy; thyroid symmetric, normal size, no bruits. Lungs: Lungs clear to auscultation. No wheezing, rhonchi, rales.. Heart: RRR without murmur, gallop, or rubs. No ectopy. Abdomen: Normal abdominal exam, Abdomen soft, non-tender. Bowel sounds normal. No masses, organomegaly. Musculoskeletal: No joint swelling, deformity, or tenderness. Peripheral Pulses: Normal. Neurologic: Gait normal. Reflexes normal and symmetric. Sensation grossly intact.. Health Maintenance List HPV Vaccine(2 - 2-dose series) due on 09/23/2012 Meningococcal B Vaccine: Consider Based On Risk(1 of 2 - Patient Seeks Protection) Never done DTaP,Tdap,Td Vaccine(7 - Td or Tdap) due on 03/23/2022 Depression Assessment Never done Influenza Vaccine(1) due on 01/29/2024 Covid-19 Vaccine(1) due on 06/14/2024 GC (Gonorrhea) Screening (18-24) due on 03/21/2024 Chlamydia Screening (18-24) due on 03/21/2024 Pap Testing due on 05/20/2024 Hepatitis B Vaccine Completed Hepatitis C Screening Completed HIV Screening Completed ASSESSMENT/PLAN: 1. Wellness examination - ICD9: V70.0, ICD10: Z00.00 (primary diagnosis) - Counseled on healthy diet and regular exercise - Recommend vitamin containing 0.4 mg of folic acid - Calcium intake with supplements or by diet of 1000 mg/day for under 50, 9971-0243 mg/day for 50+ - Discussed need and benefit for weight loss. BMI 32.06 kg/(m2) - Depression screening tool completed and reviewed with patient. Based on score and interview, patient is not at risk for depression and recommended no further intervention at this time. - Follow up for annual exam in one year 2. Obesity (BMI 30.0-34.9) - ICD9: 278.00, ICD10: E66.9 -currently Blade Fabian APRN.[facility] 06-14-2023 History of Presen t illness Narrative Chief Complaint Patient presents with: [facility] Paulette Muhammad is a 22 year old female who presents here today for Above Complaints.. [facility]. Patient is currently 23 weeks and has a 1.5 year old. Patient reports she is feeling better now that she is in her second trimester. Past medical history, appointments, medications, allergies reviewed. Previous Medical History PAST MEDICAL HISTORY Diagnosis Date Herpes, genital Rubella non-immune status, antepartum 04/06/2023 Previous Surgical History PAST SURGICAL HISTORY Procedure Laterality Date TONSILLECTOMY HX Family History FAMILY HISTORY Problem Relation Age of Onset No Known Problems Mother No Known Problems Father No Known Problems Sister No Known Problems Sister No Known Problems Brother No Known Problems Maternal Grandmother No Known Problems Maternal Grandfather No Known Problems Paternal Grandmother No Known Problems Paternal Grandfather Patient Allergies ALLERGIES Allergen Reactions Penicillins Hives childhood reaction Current Medications Current Outpatient Medications on File Prior to Visit Medication Sig psyllium husk (METAMUCIL ORAL) Take by mouth. OMEPRAZOLE ORAL Take by mouth as needed. multivitamin (CLASSIC ) 28 mg iron- 800 mcg tab(s) Take 1 tablet by mouth once daily. No current facility-administered medications on file prior to visit. Social History Social History Tobacco Use Smoking status: Never Smokeless tobacco: Never Vaping Use Vaping Use: Never used Substance Use Topics Alcohol use: Yes Comment: rare Drug use: Never Review of Symptoms REVIEW OF SYSTEMS GENERAL: No weight loss, malaise or fevers HEENT: No changes in hearing or vision, no nose bleeds or other nasal problems NECK: Negative for lumps, goiter, pain and significant neck swelling RESPIRATORY: Negative for cough, hemoptysis, wheezing, COPD, dyspnea or shortness of breath CARDIOVASCULAR: Negative for chest pain, leg swelling, hypertension, CHF or palpitations GI: No nausea, vomiting, or diarrhea : No history of dysuria, frequency or incontinence GAMEMASTER: Negative for abnormal vaginal bleeding, abnormal vaginal discharge MUSCULOSKELETAL: Negative for joint pain or swelling, back pain or muscle pain SKIN: Negative for lesions, rash, and itching PSYCH: Negative for sleep disturbance, mood disorder and recent psychosocial stressors HEMATOLOGY/LYMPHOLOGY: Negative for prolonged bleeding, bruising easily or swollen nodes ENDOCRINE: Negative for cold or heat intolerance, polyuria, polydipsia and goiter NEURO: No history of headaches, syncope, paralysis, seizures or tremors EXAM: BP 112/70 Pulse 80 Resp 14 Wt 82.1 kg (181 lb) LMP 01/03/2023 (Within Days) BMI 32.06 kg/m General Appearance: Well appearing, alert, in no acute distress, well-hydrated, well nourished.. Skin: Skin color, texture, turgor normal, no suspicious rashes or lesions. Neck: Supple, no adenopathy; thyroid symmetric, normal size, no bruits. Lungs: Lungs clear to auscultation. No wheezing, rhonchi, rales.. Heart: RRR without murmur, gallop, or rubs. No ectopy. Abdomen: Normal abdominal exam, Abdomen soft, non-tender. Bowel sounds normal. No masses, organomegaly. Musculoskeletal: No joint swelling, deformity, or tenderness. Peripheral Pulses: Normal. Neurologic: Gait normal. Reflexes normal and symmetric. Sensation grossly intact.. Health Maintenance List HPV Vaccine(2 - 2-dose series) due on 09/23/2012 Meningococcal B Vaccine: Consider Based On Risk(1 of 2 - Patient Seeks Protection) Never done DTaP,Tdap,Td Vaccine(7 - Td or Tdap) due on 03/23/2022 Depression Assessment Never done Influenza Vaccine(1) due on 01/29/2024 Covid-19 Vaccine(1) due on 06/14/2024 GC (Gonorrhea) Screening (18-24) due on 03/21/2024 Chlamydia Screening (18-24) due on 03/21/2024 Pap Testing due on 05/20/2024 Hepatitis B Vaccine Completed Hepatitis C Screening Completed HIV Screening Completed ASSESSMENT/PLAN: 1. Wellness examination - ICD9: V70.0, ICD10: Z00.00 (primary diagnosis) - Counseled on healthy diet and regular exercise - Recommend vitamin containing 0.4 mg of folic acid - Calcium intake with supplements or by diet of 1000 mg/day for under 50, 1592-5820 mg/day for 50+ - Discussed need and benefit for weight loss. BMI 32.06 kg/(m^2) - Depression screening tool completed and reviewed with patient. Based on score and interview, patient is not at risk for depression and recommended no further intervention at this time. - Follow up for annual exam in one year 2. 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 Recommend pelvic rest until no further bleeding for 1 week. Thick discharge could be semen. Give PTL precautions 21w0d documented in this encounter [facility] 05-24-2023 Miscellaneous Notes 2nd risk assessment form submitted 05/24/23 Mulu Watkins RN documented in this encounter [facility] 04-18-2023 Miscellaneous Notes SW- Some round ligament pain. No vb, lof. PE: Gen- NAD, well appearing Abd- Soft, NT See flowsheet A/p 15 wk gestation - Discussed second trimester blood work - RTO anatomy US and OB visit after Korey Jones DO documented in this encounter [facility] 04-18-2023 Instructions Korey Jones MD - 04/18/2023 10:23 AM EDT Go into the lab between 04/26/23 and 05/10/23 to get blood work SEQUENTIAL SCREENINGS The [facility] offers sequential screenings for women who are interested in screenings for chromosomal abnormalities and certain defects during a . The sequential screen combines ultrasound and blood tests to determine the risk of chromosomal abnormalities, including Down's Syndrome (Trisomy 21) and Trisomy 18, as well as open neural tube defects including spina bifida. Ultrasound examination is performed between 11 weeks and 13 weeks gestational age. Blood tests are drawn after the ultrasound and again later in the between 15 and 21 weeks gestational age. Please let your physician know if you are interested in this testing. It will require an appointment with our electromedical equipment technician. This is not an ultrasound performed by a physician in our office during a routine visit. SIGNS AND SYMPTOMS OF LABOR 1. Contractions every 10 minutes or more often 2. Clear, pink, or brownish fluid (water) leaking from vagina 3. Feeling that baby is pushing down, pressure 4. Low, dull backache 5. Cramps that feel like a period 6. Cramps with or without diarrhea If you notice any of the above symptoms, contact our office at [phone] and ask to speak with a nurse. After hours, you can call doctors registry at [phone] OR call [facility] at [phone] and ask to have the doctor admissions dean paged. If you consider this an emergency, dial or go to your nearest emergency department. NEED HELP? Are you dealing with a violent or abusive relationship? Are you a victim of rape or sexual assult? Call [facility] ([place]) 24 hour Crisis Hotline: 798.231.6300 or 819-010-6397. MANUAL Your Guide to a Healthy manual is now on-line. Visit [email or web address] to download your free copy documented in this encounter [facility] 04-01-2023 Miscellaneous Notes Noted. Rahel Brambila LPN ' Done Kendra Ibrahim MD Patient here for First Trimester Screening. Order pending documented in this encounter [facility] 04-01-2023 Instructions Clara Demarco RN - 04/01/2023 11:00 AM EDT SEQUENTIAL TESTING PROCESS Sequential Screen First Trimester Today you are currently: 12w4d weeks 04/01/2023: Ultrasound and blood test. Sequential Screen Second Trimester (16-17 Weeks Gestation) When you are called with your results, the nurse will give the optimal draw dates for the Sequential screen second trimester. Blood testing can be done at any [facility] lab. Please report to the any cloth washer office waterfront director for the Sequential Part 2 requisition and order before reporting to the lab. Your weight will need to be documented for testing. Please note: -No appointment is need for your second blood draw. -Office hours are 8 am to 4:30 pm. -Please have testing done prior to 12 noon on Tuesday's -Once the sequential testing is started, in the first trimester the only follow-up will be for the sequential screen second trimester. Please don't have a Quad screen ordered by another provider. If you or your Provider have any questions please call your maternal medicine office, for east side please call [phone] or for the West side call [phone] and ask for the the nurse. Thank you. documented in this encounter [facility] 03-22-2023 Miscellaneous Notes Initial Risk Assessment Form submitted on March 22, 2023 Clara Villarreal RN documented in this encounter [facility] 03-21-2023 Note HNO ID: [id number] Author: Renetta Lane APRN.SRINIVASAN Service: ? Author Type: Nurse Practitioner Type: Progress Notes Filed: 03/21/2023 1:59 PM Note Text: INITIAL OB ASSESSMENT OB Provider: Renetta Lane CNP HPI: Paulette is a 22 year old White here to establish Obstetrical Care. Patient's last menstrual period was 01/03/2023 (within days). from OB Dating Form. Cycles regular was unplanned but accepted Complaints: nausea without vomiting OB History T1 L1 SAB0 IAB0 Ectopic0 Multiple0 Live Births1 Previous history: Prior : never History of 4th degree laceration: No History of shoulder dystocia: No History of Hypertensive disorders including pre-eclampsia, chronic hypertension or gestational hypertension: No History of gestational diabetes: No Patient's Risk Screening for delivery: Have you had a prior roblero between 20w and 36w6d?: No MEDICAL/PSYCHOSOCIAL HISTORY: History of hemorrhage or bleeding concerns: No Thyroid Disease: No History of chronic hypertension: No History of pre-existing diabetes: No ABO/RH(D) Date Value Ref Range Status 06/17/2021 A POSITIVE Final BMI 31.35 kg/(m2) History of abnormal pap: No Prior treatment for cervical dysplasia: none. History of STDs: HSV Tobacco use: No Caffeine use: Yes Drug use: No Alcohol use: No Multivitamin with Folic acid: Yes Gnosticism or heritage: No Would refuse blood transfusion if medically necessary: No Are you currently employed? Yes, Occupation: [employer] Do you have any history of depression, anxiety, PTSD, eating disorders or other mood problems: No Do you have any safety concerns or history of traumatic events that you would like to discuss with your provider: No How often does this describe you? I don't have enough money to pay my bills: Never Within the past 12 months, have you worried that your food would run out before you had money to buy more: Never In the past 12 months, has lack of reliable transportation kept you from going to medical appointments or work, or from keeping things needed for daily living: Never In the past 12 months, have you had any concerns about having a place to live, or about the condition or quality of your housing: Never Are there any cultural or spiritual needs we should be aware of: No Depression: denies symptoms of depression. OB Depression and Anxiety Screening- This Encounter (since 03/20/2023) None GENETIC SCREENING: Partner present: No Patient verbalized knowledge of partner family health history: Yes Do you or your partner have any personal or family history of defects not previously discussed: No Do you have history of a complicated by anomaly, genetic condition, or demise: No Marital Status:Single Partner: Name: ANJUM Age: 23 Occupation: unemployed Gender: Male History of STDs: None PAST MEDICAL HISTORY Diagnosis Date Herpes, genital PAST SURGICAL HISTORY Procedure Laterality Date TONSILLECTOMY HX Current Outpatient Medications Medication Sig Dispense Refill psyllium husk (METAMUCIL ORAL) Take by mouth. OMEPRAZOLE ORAL Take by mouth as needed. Breast Pump Double electric breast pump as covered by insurance (Patient not taking: Reported on 01/26/2023) 1 Each 0 multivitamin (CLASSIC ) 28 mg iron- 800 mcg tab(s) Take 1 tablet by mouth once daily. No current facility-administered medications for this visit. Allergies As of Date: 03/21/2023 Allergen Noted Reaction PENICILLINS 05/11/2021 Hives Fully Assessed 03/21/2023 Does patient have penicillin allergy: Yes, plan for allergy testing. REVIEW OF SYSTEMS: GENERAL: Negative for: Fever or Chills HEENT: Negative for: Headache, Impaired Vision, Ringing in Ears, Nosebleeds NECK: Negative for: Swelling, Pain, Stiffness RESPIRATORY: Negative for: Cough, Shortness of breath, Wheezing GASTROINTESTINAL: Positive for: Constipation and + nausea MUSCULOSKELETAL: Negative for: Muscle or joint pain, stiffness, Joint swelling NEUROLOGIC/PSYCHIATRIC: Negative for: Weakness, Paralysis, Numbness, Tingling, Tremor, Anxiety, Depression, Memory loss SKIN: Negative for: Rash, Itching GENITOURINARY: Negative for: vaginal itching, vaginal discharge, hematuria or dysuria PHYSICAL EXAM: BP 112/72 Ht 5' 3 (1.60m) Wt 177 lb (80.3kg) LMP 01/03/2023 BMI 31.36 kg/(m2). GENERAL: pleasant in no apparent distress DERMATOLOGY: Normal, without lesions, non-icteric, and non-hirsute NECK: Supple, full range of motion, no adenopathy, and thyroid normal CHEST: Normal inspiratory effort BREAST: soft, non-tender, symmetric, no dominant mass, normal nipple-areolar complex, no lymphadenopathy, and no nipple discharge ABDOMEN: soft, non-tender, and no masses NEURO: alert and oriented x3,exam grossly non-focal PELVI (more content not included)... [facility] 03-07-2023 Miscellaneous Notes Addended by: RAFAEL MILLER CMA on: 03/07/2023 04:00 PM Modules accepted: Orders documented in this encounter [facility] 03-07-2023 Note HNO ID: [id number] Author: Ayla Amaya APRN.CNM Service: ? Author Type: Cadd Operator Type: Progress Notes Filed: 03/07/2023 2:03 PM Note Text: Paulette Muhammad is a 22 year old female who presents for problem visit of missed menses. Stated LMP was around 01/03/23 ( approximate) and she skipped cycle in January. Took HPT on 02/20/23 that was positive. Has 14 month old daughter and her and FOB are going through a rough time. Still daughter at night. She is accepting of the . Having some mild nausea without vomiting. Denies any vaginal bleeding, cramping or pain. Here today for confirmation of . REVIEW OF SYSTEMS Abdomen: No bloating, early satiety, indigestion, or increased flatulence. No abdominal pain, nausea, vomiting, diarrhea, or constipation. Bladder: No dysuria, gross hematuria, urinary frequency, urinary urgency, or incontinence. Breast: No breast lumps, nipple d/c, overlying skin changes, redness or skin retraction. Expanded ROS: N/A Allergies and current medication updated:Yes EXAM: BP 100/62 Wt 179 lb 6.4 oz (81.4kg) LMP 01/03/2023 GENERAL: pleasant, female in no apparent distress HEENT: Normocephalic and atraumatic NECK: Supple and full range of motion DERMATOLOGY: Normal and without lesions NEURO: alert and oriented x3,exam grossly non-focal EXTREMITIES: normal ASSESSMENT/PLAN: 1. Encounter for test, result positive - ICD9: V72.42, ICD10: Z32.01 (primary diagnosis) - OBSTETRIC ULTRASOUND WHI- DATING US due to uncertain LMP - PNV daily - Vitamin B6 and Unisom for nausea 2. Lactating mother - ICD9: V24.1, ICD10: Z39.1 RTO- for dating ultrasound and NOB Ayla Amaya APRN.[facility] 03-07-2023 History of Presen t illness Narrative Paulette Muhammad is a 22 year old female who presents for problem visit of missed menses. Stated LMP was around 01/03/23 ( approximate) and she skipped cycle in January. Took HPT on 02/20/23 that was positive. Has 14 month old daughter and her and FOB are going through a rough time. Still daughter at night. She is accepting of the . Having some mild nausea without vomiting. Denies any vaginal bleeding, cramping or pain. Here today for confirmation of . REVIEW OF SYSTEMS Abdomen: No bloating, early satiety, indigestion, or increased flatulence. No abdominal pain, nausea, vomiting, diarrhea, or constipation. Bladder: No dysuria, gross hematuria, urinary frequency, urinary urgency, or incontinence. Breast: No breast lumps, nipple d/c, overlying skin changes, redness or skin retraction. Expanded ROS: N/A Allergies and current medication updated:Yes EXAM: BP 100/62 Wt 179 lb 6.4 oz (81.4kg) LMP 01/03/2023 GENERAL: pleasant, female in no apparent distress HEENT: Normocephalic and atraumatic NECK: Supple and full range of motion DERMATOLOGY: Normal and without lesions NEURO: alert and oriented x3,exam grossly non-focal EXTREMITIES: normal ASSESSMENT/PLAN: 1. Encounter for test, result positive - ICD9: V72.42, ICD10: Z32.01 (primary diagnosis) - OBSTETRIC ULTRASOUND WHI- DATING US due to uncertain LMP - PNV daily - Vitamin B6 and Unisom for nausea 2. Lactating mother - ICD9: V24.1, ICD10: Z39.1 RTO- for dating ultrasound and NOB Ayla Amaya APRN.CNM documented in this encounter [facility] 01-28-2023 Miscellaneous Notes Pt notified via [employer]. Rahel Brambila LPN' ----- Message from Ayla Amaya APRN.CNM sent at 01/28/2023 4:11 PM EDT ----- Positive for bacterial vaginosis. RX for Flagyl 500 mg PO BID x 7 days sent to pharmacy. Finish all medications. No alcohol during and up to 24 hours after last dose. No intercourse during treatment. Ayla Amaya APRN.CNM documented in this encounter [facility] 01-26-2023 Note HNO ID: [id number] Author: Elzbieta Echavarria APRN.CNM Service: ? Author Type: Cadd Operator Type: Progress Notes Filed: 01/26/2023 2:54 PM Note Text: Home Stager offered: Patient declines. Paulette is a 22 year old who presents for an annual gynecologic exam with complaints, . Complaint of feeling fuzzy, blurry vision, dizziness, nausea, low energy, feels like she is shutting down. This has started in the last couple of months and felt like it started the first day of her menses. Over the last 3 weeks has continued on and off. Body is achy all over. Usually lasts for several hours on and off. Does not have primary care provider. Menses: cycles every 30 days and 4 days of flow. Contraception: none HPV vaccine: No Last Pap: 05/29/2021 normal HPV: N/A History of abnormal pap: No Last mammogram: never Sexually active: Yes Time with current partner: Almost 3 years Pain with intercourse: No Postcoital bleeding: No Exercise: Walking Diet: Regular diet Seatbelt use: Yes OB History T1 L1 SAB0 IAB0 Ectopic0 Multiple0 Live Births1 Semi Driver History LMP: 01/03/2023 (Within Days), Unknown Age at Menarche: Age at First : Age at Menopause: Semi Driver History Comments: Sexual Activity: Yes; Male Contraception: No contraception data on record PAST MEDICAL HISTORY Diagnosis Date Herpes, genital PAST SURGICAL HISTORY Procedure Laterality Date TONSILLECTOMY HX FAMILY HISTORY Problem Relation Age of Onset No Known Problems Mother No Known Problems Father No Known Problems Sister No Known Problems Sister No Known Problems Brother No Known Problems Maternal Grandmother No Known Problems Maternal Grandfather No Known Problems Paternal Grandmother No Known Problems Paternal Grandfather SOCIAL HISTORY Social History Tobacco Use Smoking status: Never Smokeless tobacco: Never Vaping Use Vaping Use: Never used Substance Use Topics Alcohol use: Yes Comment: rare Drug use: Never REVIEW OF SYSTEMS Abdomen: No abdominal pain, vomiting, diarrhea, or constipation. No bloating, early satiety, indigestion, or increased flatulence. Bladder: No dysuria, gross hematuria, urinary frequency, urinary urgency, or incontinence. Breast: No breast lumps, nipple d/c, overlying skin changes, redness or skin retraction. Allergies and current medication updated:Yes EXAM: BP 108/60 Ht 5' 3 (1.60m) Wt 179 lb (81.2kg) LMP 01/03/2023 BMI 31.72 kg/(m2). GENERAL: pleasant, female in no apparent distress HEENT: Normocephalic, atraumatic, mucus membranes moist, and no lesions NECK: Supple, full range of motion, no adenopathy, and thyroid normal DERMATOLOGY: Normal, without lesions, non-icteric, and non-hirsute BREAST: soft, non-tender, symmetric, no dominant mass, normal nipple-areolar complex, no lymphadenopathy, and no nipple discharge CHEST: Normal inspiratory effort ABDOMEN: soft, non-tender, and no masses PELVIC: external genitalia normal, normal Bartholin's glands, urethra, Pipestone's glands, no vulvar lesions, no cervical lesions, good vaginal support, white vaginal discharge present, normal appearing perineal body and perianal region BIMANUAL: uterus normal size, shape and consistency, no adnexal masses, and non-tender RECTOVAGINAL: deferred. NEURO: alert and oriented x3,exam grossly non-focal EXTREMITIES: normal ASSESSMENT/PLAN: 1. Encounter for gynecological examination (general) (routine) without abnormal findings - ICD9: V72.31, ICD10: Z01.419 (primary diagnosis) - Completed pelvic and breast exam - Encouraged monthly BSE - Follow up for annual exam in one year. 2. Screen for STD (sexually transmitted disease) - ICD9: V74.5, ICD10: Z11.3 - GONORRHEA/CHLAMYDIA NAAT - BACTERIAL VAGINOSIS NAAT - LILIAN/TRICHOMONAS NAAT 3. Malaise and fatigue - ICD9: 780.79, ICD10: R53.81, R53.83 - COMP METABOLIC PANEL - THYROID PEROXIDASE ANTIBODY BLOOD - TSH BLD - T4 FREE/FREE THYROX - IRON + TIBC - CBC + DIFF - LIPID PANEL BASIC - VITAMIN D 25 HYDROXY 4. Body aches - ICD9: 780.96, ICD10: R52 - COMP METABOLIC PANEL - THYROID PEROXIDASE ANTIBODY BLOOD - TSH BLD - T4 FREE/FREE THYROX - IRON + TIBC - CBC + DIFF 5. Screening, lipid - ICD9: V77.91, ICD10: Z13.220 - LIPID PANEL BASIC - HGB A1C 6. Nausea - ICD9: 787.02, ICD10: R11.0 - HCG QUANTITATIVE 7. Screening for diabetes mellitus - ICD9: V77.1, ICD10: Z13.1 - HGB A1C 8. Class 1 obesity without serious comorbidity with body mass index (BMI) of 31.0 to 31.9 in adult, unspecified obesity type - ICD9: 278.00, V85.31, ICD10: E66.9, Z68.31 1) Health maintenance: Pap/HPV up to date. Nutrition, exercise and routine health maintenance exams reviewed. Calcium/Vitamin D supplementation information provided. Lipids/glucose: ordered Vitamin D: ordered HPV vaccine: discussed, not interested 2) Contraception: none. Contraceptive options reviewed (more content not included)... [facility] 01-26-2023 Instructions Elzbieta Echavarria APRN.[facility] - 01/26/2023 8:44 AM EDT Vitamin D3 2,000 international unit(s) once daily Magnesium citrate 400mg by mouth once daily [place] fish oils 1 gram by mouth once daily documented in this encounter [facility] 01-26-2023 History of Presen t illness Narrative Home Stager offered: Patient declines. Paulette is a 22 year old who presents for an annual gynecologic exam with complaints, . Complaint of feeling fuzzy, blurry vision, dizziness, nausea, low energy, feels like she is shutting down. This has started in the last couple of months and felt like it started the first day of her menses. Over the last 3 weeks has continued on and off. Body is achy all over. Usually lasts for several hours on and off. Does not have primary care provider. Menses: cycles every 30 days and 4 days of flow. Contraception: none HPV vaccine: No Last Pap: 05/29/2021 normal HPV: N/A History of abnormal pap: No Last mammogram: never Sexually active: Yes Time with current partner: Almost 3 years Pain with intercourse: No Postcoital bleeding: No Exercise: Walking Diet: Regular diet Seatbelt use: Yes OB History T1 L1 SAB0 IAB0 Ectopic0 Multiple0 Live Births1 Semi Driver History LMP: 01/03/2023 (Within Days), Unknown Age at Menarche: Age at First : Age at Menopause: Semi Driver History Comments: Sexual Activity: Yes; Male Contraception: No contraception data on record PAST MEDICAL HISTORY Diagnosis Date Herpes, genital PAST SURGICAL HISTORY Procedure Laterality Date TONSILLECTOMY HX FAMILY HISTORY Problem Relation Age of Onset No Known Problems Mother No Known Problems Father No Known Problems Sister No Known Problems Sister No Known Problems Brother No Known Problems Maternal Grandmother No Known Problems Maternal Grandfather No Known Problems Paternal Grandmother No Known Problems Paternal Grandfather SOCIAL HISTORY Social History Tobacco Use Smoking status: Never Smokeless tobacco: Never Vaping Use Vaping Use: Never used Substance Use Topics Alcohol use: Yes Comment: rare Drug use: Never REVIEW OF SYSTEMS Abdomen: No abdominal pain, vomiting, diarrhea, or constipation. No bloating, early satiety, indigestion, or increased flatulence. Bladder: No dysuria, gross hematuria, urinary frequency, urinary urgency, or incontinence. Breast: No breast lumps, nipple d/c, overlying skin changes, redness or skin retraction. Allergies and current medication updated:Yes EXAM: BP 108/60 Ht 5' 3 (1.60m) Wt 179 lb (81.2kg) LMP 01/03/2023 BMI 31.72 kg/(m^2). GENERAL: pleasant, female in no apparent distress HEENT: Normocephalic, atraumatic, mucus membranes moist, and no lesions NECK: Supple, full range of motion, no adenopathy, and thyroid normal DERMATOLOGY: Normal, without lesions, non-icteric, and non-hirsute BREAST: soft, non-tender, symmetric, no dominant mass, normal nipple-areolar complex, no lymphadenopathy, and no nipple discharge CHEST: Normal inspiratory effort ABDOMEN: soft, non-tender, and no masses PELVIC: external genitalia normal, normal Bartholin's glands, urethra, Pipestone's glands, no vulvar lesions, no cervical lesions, good vaginal support, white vaginal discharge present, normal appearing perineal body and perianal region BIMANUAL: uterus normal size, shape and consistency, no adnexal masses, and non-tender RECTOVAGINAL: deferred. NEURO: alert and oriented x3,exam grossly non-focal EXTREMITIES: normal ASSESSMENT/PLAN: 1. Encounter for gynecological examination (general) (routine) without abnormal findings - ICD9: V72.31, ICD10: Z01.419 (primary diagnosis) - Completed pelvic and breast exam - Encouraged monthly BSE - Follow up for annual exam in one year. 2. Screen for STD (sexually transmitted disease) - ICD9: V74.5, ICD10: Z11.3 - GONORRHEA/CHLAMYDIA NAAT - BACTERIAL VAGINOSIS NAAT - LILIAN/TRICHOMONAS NAAT 3. Malaise and fatigue - ICD9: 780.79, ICD10: R53.81, R53.83 - COMP METABOLIC PANEL - THYROID PEROXIDASE ANTIBODY BLOOD - TSH BLD - T4 FREE/FREE THYROX - IRON + TIBC - CBC + DIFF - LIPID PANEL BASIC - VITAMIN D 25 HYDROXY 4. Body aches - ICD9: 780.96, ICD10: R52 - COMP METABOLIC PANEL - THYROID PEROXIDASE ANTIBODY BLOOD - TSH BLD - T4 FREE/FREE THYROX - IRON + TIBC - CBC + DIFF 5. Screening, lipid - ICD9: V77.91, ICD10: Z13.220 - LIPID PANEL BASIC - HGB A1C 6. Nausea - ICD9: 787.02, ICD10: R11.0 - HCG QUANTITATIVE 7. Screening for diabetes mellitus - ICD9: V77.1, ICD10: Z13.1 - HGB A1C 8. Class 1 obesity without serious comorbidity with body mass index (BMI) of 31.0 to 31.9 in adult, unspecified obesity type - ICD9: 278.00, V85.31, ICD10: E66.9, Z68.31 1) Health maintenance: Pap/HPV up to date. Nutrition, exercise and routine health maintenance exams reviewed. Calcium/Vitamin D supplementation information provided. Lipids/glucose: ordered Vitamin D: ordered HPV vaccine: discussed, not interested 2) Contraception: none. Contraceptive options reviewed and information provided. 3) STD screening: Accepted STD check for Gonorrhea and Chlamydia. 4) Follow up one year or sooner as needed Elzbieta Echavarria APRN.CNM documented in this encounter [facility] 08-13-2022 Miscellaneous Notes Patient notified. Nadine Acosta RN Noted. This could be a clogged duct or early mastitis. Patient should nurse/pump every 2-3 hours. If develops fevers should go to urgent care over the weekend. If would like seen today should go there now. Kendra Ibrahim MD Patient and calling with complaints of left breast pain accompanied by body aches, fatigue and headache. Pain started today. Per patient breast feels hard, she is able to express milk but states it is tender to the touch. Denies any redness or warmth. Denies any fever that she knows off. Encouraged patient to continue , Motrin for pain and warm compresses. Please address. Wilda Naidu RN documented in this encounter [facility] 04-08-2022 History of Presen t illness Narrative Home Stager offered: Patient declines. Paulette Muhammad is a 21 year old female who presents for problem visit of tear in vagina . HPI: 12/24/21- with repaired first degree laceration. During intercourse last week she felt a tearing sensation and was afraid that laceration from split back open . Denies any bleeding or current pain. Stated she looked at vagina with a mirror and did not see anything different but here today to make sure vagina is healed. OB History T1 L1 SAB0 IAB0 Ectopic0 Multiple0 Live Births1 REVIEW OF SYSTEMS Abdomen: No bloating, early satiety, indigestion, or increased flatulence. No abdominal pain, nausea, vomiting, diarrhea, or constipation. Bladder: No dysuria, gross hematuria, urinary frequency, urinary urgency, or incontinence. Breast: No breast lumps, nipple d/c, overlying skin changes, redness or skin retraction. Expanded ROS: GAMEMASTER: SEE HPI Allergies and current medication updated:Yes EXAM: BP 100/60 Wt 162 lb (73.5kg) LMP 03/21/2021 GENERAL: pleasant, female in no apparent distress HEENT: Normocephalic NECK: Supple and full range of motion DERMATOLOGY: Normal and without lesions BREAST: deferred CHEST: Normal inspiratory effort ABDOMEN: Deferred PELVIC: external genitalia normal, normal Bartholin's glands, urethra, Pipestone's glands, no vulvar lesions, no cervical lesions, good vaginal support, physiologic discharge present, normal appearing perineal body and perianal region. Laceration well approximated and completely healed. BIMANUAL: uterus normal size, shape and consistency, no adnexal masses, and non-tender NEURO: alert and oriented x3,exam grossly non-focal EXTREMITIES: normal ASSESSMENT/PLAN: 1. Obstetric vaginal laceration without perineal laceration - ICD9: 665.40, ICD10: O71.4 (primary diagnosis) 2. Lactating mother - ICD9: V24.1, ICD10: Z39.1 3. care and examination - ICD9: V24.2, ICD10: Z39.2 RTO- PRN or for annual exams Ayla Amaya APRN.CNM documented in this encounter [facility] 01-28-2022 History of Presen t illness Narrative VISIT Paulette Muhammad is a 21 year old year old here for visit. Delivery Summary: 12/24/2021 ROS/ Recovery: Feeding: Breast feeding problems: None Menses since delivery: light flow Menstrual pattern prior to : Regular periods [place] since delivery: Not resumed Depression: denies symptoms of depression. OB Depression and Anxiety Screening- This Encounter (since 01/27/2022) Over the past 2 weeks have you felt down, depressed, or hopeless? Negative Over the past two weeks, have you felt little interest or pleasure in doing things? Negative Feeling nervous, anxious or on edge 0-Not at all Not being able to stop or control worrying 0-Not al all Anxiety Pre-Screening Total (If >/= 3 additional questions will be reviewed) 0 Emotional support: Yes Bowel symptoms: Constipation Abdomen: N/A Bladder symptoms: No dysuria, gross hematuria, urinary frequency, urinary urgency, or incontinence Other issues: thinks may be having problems with pancreas, is planning to schedule with pcp Last Pap: 2020 normal HPV: N/A PAST MEDICAL HISTORY Diagnosis Date Herpes, genital PAST SURGICAL HISTORY Procedure Laterality Date TONSILLECTOMY HX FAMILY HISTORY Problem Relation Age of Onset No Known Problems Mother No Known Problems Father No Known Problems Sister No Known Problems Sister No Known Problems Brother No Known Problems Maternal Grandmother No Known Problems Maternal Grandfather No Known Problems Paternal Grandmother No Known Problems Paternal Grandfather Social History Tobacco Use Smoking status: Never Smoker Smokeless tobacco: Never Used Vaping Use Vaping Use: Never used Substance Use Topics Alcohol use: Not Currently Comment: 2 times a month Drug use: Never PHYSICAL EXAMINATION: BP 100/64 Wt 170 lb 12.8 oz (77.5kg) LMP 03/21/2021 GENERAL: pleasant, female in no apparent distress HEENT: Normocephalic, atraumatic, mucus membranes moist and no lesions NECK: full range of motion DERMATOLOGY: Normal, without lesions, non-icteric and non-hirsute BREAST: soft, non-tender, symmetric, no dominant mass, normal nipple-areolar complex, no lymphadenopathy and no nipple discharge CHEST: Normal inspiratory effort ABDOMEN: soft, non-tender and no masses. INCISION: N/A PELVIC: external genitalia normal, normal Bartholin's glands, urethra, Pipestone's glands, no vulvar lesions, no cervical lesions, good vaginal support, physiologic discharge present, normal appearing perineal body and perianal region BIMANUAL: uterus normal size, shape and consistency, no adnexal masses and non-tender NEURO: exam grossly non-focal EXTREMITIES: normal ASSESSMENT AND PLAN: 21 year old status post with normal course. Contraception plan: POP Follow up: RTC for annual exams and PRN Korey Jones DO documented in this encounter [facility] 01-13-2022 History of Presen t illness Narrative EARLY VISIT Paulette Muhammad is a 21 year old for a 2 week virtual virtual visit using VitalTraxt video visit. It required patient-provider interaction for the medical decision making as documented below. Had headache, felt warm, and chills. Temp less than 100.4. Took Tylenol. , denies any redness or pain in breast. Delivery Summary: on 12/24/21 delivered by Ayla Amaya CNM. Female AriaLynn 8 lb 6oz ROS: General: Denies any fever or chills Hypertension Screening: Headache? No. Visual Changes? No Epigastric Pain? No Increased Swelling? No Taking any BP medications at home? No If applicable, monitoring BP at home? (If Yes, include results) No Mood: normal Depression: denies symptoms of depression. OB Depression and Anxiety Screening- This Encounter (since 01/12/2022) None Feeding: Breast feeding problems: None Bladder: No dysuria, gross hematuria, urinary frequency, urinary urgency, or incontinence Bowel symptoms: Negative for abdominal discomfort, blood in stools or black stools and change in bowel habits Abdomen: N/A Bleeding: spotting Bottom and Perineum: No issues Sleep: no sleep concerns, feels rested [place] since delivery: Not resumed Emotional support: Yes Exercise: N/A Other issues: None PAST MEDICAL HISTORY Diagnosis Date Herpes, genital PAST SURGICAL HISTORY Procedure Laterality Date TONSILLECTOMY HX FAMILY HISTORY Problem Relation Age of Onset No Known Problems Mother No Known Problems Father No Known Problems Sister No Known Problems Sister No Known Problems Brother No Known Problems Maternal Grandmother No Known Problems Maternal Grandfather No Known Problems Paternal Grandmother No Known Problems Paternal Grandfather Social History Tobacco Use Smoking status: Never Smoker Smokeless tobacco: Never Used Vaping Use Vaping Use: Never used Substance Use Topics Alcohol use: Not Currently Comment: 2 times a month Drug use: Never ALLERGIES Allergen Reactions Penicillins Hives childhood reaction Current Outpatient Medications Medication Sig Breast Pump Double electric breast pump as covered by insurance acyclovir (ZOVIRAX) 400 mg tablet Take 1 tablet by mouth three times daily. psyllium husk, with sugar, (METAMUCIL FREE ORAL) Take by mouth. multivitamin (CLASSIC ) 28 mg iron- 800 mcg tab(s) Take 1 tablet by mouth once daily. No current facility-administered medications for this visit. PHYSICAL EXAMINATION: General: pleasant,female in no apparent distress, A&O x 3. Incision: N/A ASSESSMENT AND PLAN: 1. 21 year old status post with normal course. 2. Contraception plan: Would like oral control pill. Reinforced 6-week pelvic rest. Encouraged condom usage should patient deviate. 3. Education: resources provided - see MA/RN note Follow up: Return to Clinic for 6 week visit and as needed and Follow-up with provider for 6 week visit and as needed Elzbieta Echavarria APRN.CNM This visit was conducted as a virtual visit 20 minutes. documented in this encounter [facility] 12-25-2021 History of Presen t illness Narrative Patient delivered via by Isaiah on 12/24/[address] [facility]. See OB history. Nadine Acosta RN documented in this encounter [facility] 12-24-2021 Miscellaneous Notes Thank you for the update. Ayla Amaya APRN.CNM 39w5d Patient called. SROM at 0830 today. Rick since 4 AM. L&D notified. Patient is about 25 minutes away from hospital. Updated H&P faxed. Clara Demarco RN documented in this encounter [facility] 12-18-2021 Miscellaneous Notes SW- Pt doing well. No ctx, vb, lof. Good FM. PE: Gen- NAD, well appearing Abd- Soft, gravid, NT Ext- No edema See flowsheet A/p 38 wk gestation - Discussed upcoming expectations and reasons to call - GBS positive - Cont Acyclovir - Weekly visits Korey Jones DO documented in this encounter [facility] 12-18-2021 Instructions Vidhi Palacios MA - 12/18/2021 9:44 AM EDT SEQUENTIAL SCREENINGS The [facility] offers sequential screenings for women who are interested in screenings for chromosomal abnormalities and certain defects during a . The sequential screen combines ultrasound and blood tests to determine the risk of chromosomal abnormalities, including Down's Syndrome (Trisomy 21) and Trisomy 18, as well as open neural tube defects including spina bifida. Ultrasound examination is performed between 11 weeks and 13 weeks gestational age. Blood tests are drawn after the ultrasound and again later in the between 15 and 21 weeks gestational age. Please let your physician know if you are interested in this testing. It will require an appointment with our electromedical equipment technician. This is not an ultrasound performed by a physician in our office during a routine visit. SIGNS AND SYMPTOMS OF LABOR 1. Contractions every 10 minutes or more often 2. Clear, pink, or brownish fluid (water) leaking from vagina 3. Feeling that baby is pushing down, pressure 4. Low, dull backache 5. Cramps that feel like a period 6. Cramps with or without diarrhea If you notice any of the above symptoms, contact our office at [phone] and ask to speak with a nurse. After hours, you can call doctors registry at [phone] OR call [facility] at [phone] and ask to have the doctor admissions dean paged. If you consider this an emergency, dial 9--1 or go to your nearest emergency department. NEED HELP? Are you dealing with a violent or abusive relationship? Are you a victim of rape or sexual assult? Call [facility] ([place]) 24 hour Crisis Hotline: 169.152.8659 or 765-406-1166. MANUAL Your Guide to a Healthy manual is now on-line. Visit [email or web address] to download your free copy documented in this encounter [facility] 12-14-2021 History of Presen t illness Narrative POPULATION HEALTH NAVIGATION OUTREACH Action/FYI Left message to update ob/ped field 2nd attempt my chart sent Establish care with PCP Pt identified by name and : NO Outreach Outcome/Action Unable to reach patient: Left message Reason for Outreach [place] Payer: Payor: [facility] MEDICAID / Plan: [facility] MEDICAID [place] / Product Type: Medicaid / Navigation Signature: Vaishali Rendon December 14, 2021 9:46 AM documented in this encounter [facility] documented as of this encounter (statuses as of 03/22/2023) [facility] History of Past illness Narrative* Problem Noted Date Diagnosed Date Resolved Date Positive GBS test 12/11/2021 03/21/2023 Overview: 12/11/21-GBS positive, allergic to PCN with urticaria and pruritus. Resistant to clindamycin. Will need vancomycin during labor. Elzbieta Echavarria APRN.[facility] Supervision of high risk pre gnancy in third trimester 11/04/2021 03/21/2023 Patient request for diagnostic testing 05/11/2021 03/21/2023 Overview: 05/11/2021atient desires nuchal ultrasound. Considering genetic carrier screening testing.TKRN documented as of this encounter (statuses as of 04/01/2023) [facility] History of Past illness Narrative* Problem Noted Date Diagnosed Date Resolved Date Positive GBS test 12/11/2021 03/21/2023 Overview: 12/11/21-GBS positive, allergic to PCN with urticaria and pruritus. Resistant to clindamycin. Will need vancomycin during labor. Elzbieta Echavarria APRN.CNM Supervision of high risk pre gnancy in third trimester 11/04/2021 03/21/2023 Patient request for diagnostic testing 05/11/2021 03/21/2023 Overview: 1Patient desires nuchal ultrasound. Considering genetic carrier screening testing.TKRN documented as of this encounter (statuses as of 04/01/2023) [facility] History of Past illness Narrative* Problem Noted Date Diagnosed Date Resolved Date Positive GBS test 12/11/2021 03/21/2023 Overview: 12/11/21-GBS positive, allergic to PCN with urticaria and pruritus. Resistant to clindamycin. Will need vancomycin during labor. Elzbieta Echavarria APRN.[facility] Supervision of high risk pre gnancy in third trimester 11/04/2021 03/21/2023 Patient request for diagnostic testing 05/11/2021 03/21/2023 Overview: 05/11/2021atient desires nuchal ultrasound. Considering genetic carrier screening testing.TKRN documented as of this encounter (statuses as of 04/12/2023) [facility] History of Past illness Narrative* Problem Noted Date Diagnosed Date Resolved Date Positive GBS test 12/11/2021 03/21/2023 Overview: 12/11/21-GBS positive, allergic to PCN with urticaria and pruritus. Resistant to clindamycin. Will need vancomycin during labor. Elzbieta Echavarria APRN.CNM Supervision of high risk pre gnancy in third trimester 11/04/2021 03/21/2023 Patient request for diagnostic testing 05/11/2021 03/21/2023 Overview: 05/11/2021atient desires nuchal ultrasound. Considering genetic carrier screening testing.TKRN documented as of this encounter (statuses as of 04/18/2023) [facility] History of Past illness Narrative* Problem Noted Date Diagnosed Date Resolved Date Positive GBS test 12/11/2021 03/21/2023 Overview: 12/11/21-GBS positive, allergic to PCN with urticaria and pruritus. Resistant to clindamycin. Will need vancomycin during labor. Elzbieta Echavarria APRN.[facility] Supervision of high risk pre gnancy in third trimester 11/04/2021 03/21/2023 Patient request for diagnostic testing 05/11/2021 03/21/2023 Overview: 05/11/2021atient desires nuchal ultrasound. Considering genetic carrier screening testing.TKRN documented as of this encounter (statuses as of 05/24/2023) [facility] History of Past illness Narrative* Problem Noted Date Diagnosed Date Resolved Date Positive GBS test 12/11/2021 03/21/2023 Overview: 12/11/21-GBS positive, allergic to PCN with urticaria and pruritus. Resistant to clindamycin. Will need vancomycin during labor. Elzbieta Echavarria APRN.CNM Supervision of high risk pre gnancy in third trimester 11/04/2021 03/21/2023 Patient request for diagnostic testing 05/11/2021 03/21/2023 Overview: 05/11/2021atient desires nuchal ultrasound. Considering genetic carrier screening testing.TKRN documented as of this encounter (statuses as of 05/24/2023) [facility] History of Past illness Narrative* Problem Noted Date Diagnosed Date Resolved Date Positive GBS test 12/11/2021 03/21/2023 Overview: 12/11/21-GBS positive, allergic to PCN with urticaria and pruritus. Resistant to clindamycin. Will need vancomycin during labor. Elzbieta Echavarria APRN.CNM Supervision of high risk pre gnancy in third trimester 11/04/2021 03/21/2023 Patient request for diagnostic testing 05/11/2021 03/21/2023 Overview: 1Patient desires nuchal ultrasound. Considering genetic carrier screening testing.TKRN documented as of this encounter (statuses as of 05/30/2023) [facility] History of Past illness Narrative* Problem Noted Date Diagnosed Date Resolved Date Positive GBS test 12/11/2021 03/21/2023 Overview: 12/11/21-GBS positive, allergic to PCN with urticaria and pruritus. Resistant to clindamycin. Will need vancomycin during labor. Elzbieta Echavarria APRN.CNM Supervision of high risk pre gnancy in third trimester 11/04/2021 03/21/2023 Patient request for diagnostic testing 05/11/2021 03/21/2023 Overview: 1Patient desires nuchal ultrasound. Considering genetic carrier screening testing.TKRN documented as of this encounter (statuses as of 06/14/2023) [facility]-13[facility] History of Past illness Narrative* Problem Noted Date Diagnosed Date Resolved Date Positive GBS test 12/11/2021 03/21/2023 Overview: 12/11/21-GBS positive, allergic to PCN with urticaria and pruritus. Resistant to clindamycin. Will need vancomycin during labor. Elzbieta Echavarria APRN.CNM Supervision of high risk pre gnancy in third trimester 11/04/2021 03/21/2023 Patient request for diagnostic testing 05/11/2021 03/21/2023 Overview: 05/11/2021atient desires nuchal ultrasound. Considering genetic carrier screening testing.TKRN documented as of this encounter (statuses as of 06/20/2023) [facility] History of Past illness Narrative* Problem Noted Date Diagnosed Date Resolved Date Positive GBS test 12/11/2021 03/21/2023 Overview: 12/11/21-GBS positive, allergic to PCN with urticaria and pruritus. Resistant to clindamycin. Will need vancomycin during labor. Elzbieta Echavarria APRN.CNM Supervision of high risk pre gnancy in third trimester 11/04/2021 03/21/2023 Patient request for diagnostic testing 05/11/2021 03/21/2023 Overview: 05/11/2021atient desires nuchal ultrasound. Considering genetic carrier screening testing.TKRN documented as of this encounter (statuses as of 07/21/2023) [facility] History of Past illness Narrative* Problem Noted Date Diagnosed Date Resolved Date Positive GBS test 12/11/2021 03/21/2023 Overview: 12/11/21-GBS positive, allergic to PCN with urticaria and pruritus. Resistant to clindamycin. Will need vancomycin during labor. Elzbieta Echavarria APRN.CNM Patient request for diagnostic testing 05/11/2021 03/21/2023 Overview: 05/11/2021atient desires nuchal ultrasound. Considering genetic carrier screening testing.TKRN documented as of this encounter (statuses as of 09/12/2023) [facility] History of Past illness Narrative* Problem Noted Date Diagnosed Date Resolved Date Positive GBS test 12/11/2021 03/21/2023 Overview: 12/11/21-GBS positive, allergic to PCN with urticaria and pruritus. Resistant to clindamycin. Will need vancomycin during labor. Elzbieta Echavarria APRN.CNM Patient request for diagnostic testing 05/11/2021 03/21/2023 Overview: 05/11/2021atient desires nuchal ultrasound. Considering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 Found Health Concerns Problem Noted Date Diagnosed Date [facility] - [facility] 03/21/2023 Education - [place] 03/21/2023 Problem Noted Date Diagnosed Date [facility] - [facility] 03/21/2023 Education - [place] 03/21/2023 Problem Noted Date Diagnosed Date [facility] - [facility] 03/21/2023 Education - [place] 03/21/2023 Problem Noted Date Diagnosed Date [facility] - [facility] 03/21/2023 Education - [place] 03/21/2023 Problem Noted Date Diagnosed Date [facility] - [facility] 03/21/2023 Education - [place] 03/21/2023 Problem Noted Date Diagnosed Date [facility] - [facility] 03/21/2023 Education - [place] 03/21/2023 Problem Noted Date Diagnosed Date [facility] - [facility] 03/21/2023 Education - [place] 03/21/2023 Problem Noted Date Diagnosed Date [facility] Education - [facility] 03/21/2023 Education - [place] 03/21/2023 Problem Noted Date Diagnosed Date [facility] - [facility] 03/21/2023 Education - [place] 03/21/2023 Problem Noted Date Diagnosed Date [facility] - [facility] 03/21/2023 Education - [place] 03/21/2023 Additional Source Comments INFORMATION SOURCE (unrecogn ized section and content) DATE CREATED AUTHOR AUTHOR'S ORGANIZ ATION 03/07/2021 [facility] DATE CREATED AUTHOR AUTHOR'S ORGANIZ ATION 04/28/2022 [facility] DATE CREATED AUTHOR AUTHOR'S ORGANIZ ATION 05/02/2022 [facility] DATE CREATED AUTHOR AUTHOR'S ORGANIZ ATION 05/02/2022 [employer] DATE CREATED AUTHOR AUTHOR'S ORGANIZ ATION 10/04/2023 [facility] Reason for Visit (unrecogniz ed section and content) Reason Onset Date Comments Care 10/26/2021 Reason Onset Date Comments Care 11/04/2021 Reason Onset Date Comments Care 11/18/2021 Reason Onset Date Comments Care 12/02/2021 Reason Onset Date Comments Care 12/11/2021 Reason Onset Date Comments Population Health Navigation Outreach 12/14/2021 ob/ped Reason Onset Date Comments Care 12/18/2021 Reason Comments SROM Reason Comments Ob Delivery Note Reason Comments Early Reason Comments Routine Reason Comments Vaginal Problem Reason Comments Breast Problem Reason Comments Results Reason Comments PRAF Reason Comments US Specialty Diagnoses / Procedures Referred By Contac t Referred To Contact [facility] Diagnoses 11 weeks gestation of Procedures NUCHAL TRANSLUCENCY WHI US NUCHAL TRANSLUCENCY 1ST GESTATION Renetta [address] 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 [address] [place] [address] Referral ID Status Reason Start Date Expiration Date V isits Requested Visits Authorized [id number] Closed Auto-Generate d Referral 03/21/2023 03/20/2024 1 1 Reason Onset Date Comments Care 04/18/2023 Specialty Diagnoses / Procedures Referred By Contac t Referred To Contact [facility] Diagnoses 11 weeks gestation of Procedures OBSTETRIC ULTRASOUND WHI US PREG UTERUS AFTER 1ST TRIMEST GESTATION [address] APRN.SRINIVASAN [address] [place] [address] [facility] [address] [place] [address] Referral ID Status Reason Start Date Expiration Date V isits Requested Visits Authorized [id number] Closed Auto-Generate d Referral 03/21/2023 03/20/2024 1 1 Reason Comments Establish Care Reason Onset Date Comments Care 06/20/2023 Reason Onset Date Comments Care 07/20/2023 Reason Onset Date Comments Care 09/12/2023 Reason Onset Date Comments Care 09/19/2023 Reason Onset Date Comments Care 10/03/2023 Ordered Prescriptions (unrec ognized section and content) Scheduled Active and Recently Administ ered Medications (unrecognized section and content) Source Comments (unrecognize d section and content) In the event this informatio n is protected by the Federal Confidentiality of Alcohol and Drug Abuse Patient Records regulations: The Federal rules restrict any use of the information to criminally investigate or prosecute any alcohol or drug abuse patient.[facility] the event this information is protected by the Federal Confidentiality of Alcohol and Drug Abuse Patient Records regulations: The Federal rules restrict any use of the information to criminally investigate or prosecute any alcohol or drug abuse patient.[facility] the event this information is protected by the Federal Confidentiality of Alcohol and Drug Abuse Patient Records regulations: The Federal rules restrict any use of the information to criminally investigate or prosecute any alcohol or drug abuse patient.[facility] the event this information is protected by the Federal Confidentiality of Alcohol and Drug Abuse Patient Records regulations: The Federal rules restrict any use of the information to criminally investigate or prosecute any alcohol or drug abuse patient.[facility] the event this information is protected by the Federal Confidentiality of Alcohol and Drug Abuse Patient Records regulations: The Federal rules restrict any use of the information to criminally investigate or prosecute any alcohol or drug abuse patient.[facility] the event this information is protected by the Federal Confidentiality of Alcohol and Drug Abuse Patient Records regulations: The Federal rules restrict any use of the information to criminally investigate or prosecute any alcohol or drug abuse patient.[facility] the event this information is protected by the Federal Confidentiality of Alcohol and Drug Abuse Patient Records regulations: The Federal rules restrict any use of the information to criminally investigate or prosecute any alcohol or drug abuse patient.[facility] the event this information is protected by the Federal Confidentiality of Alcohol and Drug Abuse Patient Records regulations: The Federal rules restrict any use of the information to criminally investigate or prosecute any alcohol or drug abuse patient.[facility] the event this information is protected by the Federal Confidentiality of Alcohol and Drug Abuse Patient Records regulations: The Federal rules restrict any use of the information to criminally investigate or prosecute any alcohol or drug abuse patient.[facility] the event this information is protected by the Federal Confidentiality of Alcohol and Drug Abuse Patient Records regulations: The Federal rules restrict any use of the information to criminally investigate or prosecute any alcohol or drug abuse patient.[facility] Hospital[facility] the event this information is protected by the Federal Confidentiality of Alcohol and Drug Abuse Patient Records regulations: The Federal rules restrict any use of the information to criminally investigate or prosecute any alcohol or drug abuse patient.[facility] the event this information is protected by the Federal Confidentiality of Alcohol and Drug Abuse Patient Records regulations: The Federal rules restrict any use of the information to criminally investigate or prosecute any alcohol or drug abuse patient.[facility] the event this information is protected by the Federal Confidentiality of Alcohol and Drug Abuse Patient Records regulations: The Federal rules restrict any use of the information to criminally investigate or prosecute any alcohol or drug abuse patient.[facility] the event this information is protected by the Federal Confidentiality of Alcohol and Drug Abuse Patient Records regulations: The Federal rules restrict any use of the information to criminally investigate or prosecute any alcohol or drug abuse patient.[facility] the event this information is protected by the Federal Confidentiality of Alcohol and Drug Abuse Patient Records regulations: The Federal rules restrict any use of the information to criminally investigate or prosecute any alcohol or drug abuse patient.[facility] the event this information is protected by the Federal Confidentiality of Alcohol and Drug Abuse Patient Records regulations: The Federal rules restrict any use of the information to criminally investigate or prosecute any alcohol or drug abuse patient.[facility] the event this information is protected by the Federal Confidentiality of Alcohol and Drug Abuse Patient Records regulations: The Federal rules restrict any use of the information to criminally investigate or prosecute any alcohol or drug abuse patient.[facility] the event this information is protected by the Federal Confidentiality of Alcohol and Drug Abuse Patient Records regulations: The Federal rules restrict any use of the information to criminally investigate or prosecute any alcohol or drug abuse patient.[facility] HospitalIn the event this information is protected by the Federal Confidentiality of Alcohol and Drug Abuse Patient Records regulations: The Federal rules restrict any use of the information to criminally investigate or prosecute any alcohol or drug abuse patient.[facility] the event this information is protected by the Federal Confidentiality of Alcohol and Drug Abuse Patient Records regulations: The Federal rules restrict any use of the information to criminally investigate or prosecute any alcohol or drug abuse patient.[facility] HospitalIn the event this information is protected by the Federal Confidentiality of Alcohol and Drug Abuse Patient Records regulations: The Federal rules restrict any use of the information to criminally investigate or prosecute any alcohol or drug abuse patient.[facility] HospitalIn the event this information is protected by the Federal Confidentiality of Alcohol and Drug Abuse Patient Records regulations: The Federal rules restrict any use of the information to criminally investigate or prosecute any alcohol or drug abuse patient.[facility] HospitalIn the event this information is protected by the Federal Confidentiality of Alcohol and Drug Abuse Patient Records regulations: The Federal rules restrict any use of the information to criminally investigate or prosecute any alcohol or drug abuse patient.[facility] the event this information is protected by the Federal Confidentiality of Alcohol and Drug Abuse Patient Records regulations: The Federal rules restrict any use of the information to criminally investigate or prosecute any alcohol or drug abuse patient.[facility]In the event this information is protected by the Federal Confidentiality of Alcohol and Drug Abuse Patient Records regulations: The Federal rules restrict any use of the information to criminally investigate or prosecute any alcohol or drug abuse patient.[facility] HospitalIn the event this information is protected by the Federal Confidentiality of Alcohol and Drug Abuse Patient Records regulations: The Federal rules restrict any use of the information to criminally investigate or prosecute any alcohol or drug abuse patient.[facility] HospitalIn the event this information is protected by the Federal Confidentiality of Alcohol and Drug Abuse Patient Records regulations: The Federal rules restrict any use of the information to criminally investigate or prosecute any alcohol or drug abuse patient.[facility] HospitalIn the event this information is protected by the Federal Confidentiality of Alcohol and Drug Abuse Patient Records regulations: The Federal rules restrict any use of the information to criminally investigate or prosecute any alcohol or drug abuse patient.[facility] HospitalIn the event this information is protected by the Federal Confidentiality of Alcohol and Drug Abuse Patient Records regulations: The Federal rules restrict any use of the information to criminally investigate or prosecute any alcohol or drug abuse patient.[facility] FOR RECORDS PERTAINING TO PATIENTS WHO ARE OR HAVE BEEN ENROLLED IN A CHEMICAL DEPENDENCY/SUBSTANCEABUSE PROGRAM, SOME INFORMATION MAY BE OMITTED. This clinical summary was aggregated from multiple sources. Caution should be exercised in using it in the provision of clinical care. This summary normalizes information from multiple sources, and as a consequence, information in this document may materially change the coding, format and clinical context of patient data. In addition, data may be omitted in some cases. CLINICAL DECISIONS SHOULD BE BASED ON THE PRIMARY CLINICAL RECORDS. [facility] provides no warranty or guarantee of the accuracy or completeness of information in this document.
--- OUTSIDE RECORDS SUMMARY | 2023-10-05 06:29 | XMS RPT_ITS | CCD ---
Author Name Unknown Address [address] [place] [address] Organization [facility] Care Team Providers Care Bi Tri Operator Name Role Phone ALEXANDRU CONN Unavailable Unavailable REFERRED, SELF Unavailable Unavailable MAI SHEIKH Unavailable Unavailable Unavailable Primary Care Provider Unavailabl e NELSON YOUSSEF Attending Unavailable Unavailable Primary Care Provider Unavailabl e Lula, Tello Mckeon Unavailable Unavailable Unavailable Lula, Mrs. Tangmelody Jiménez Primary Care Unavailabl e Rajesh, Selma Tellomelody Jiménez Attending Unavailabl e Lula, Mrs. Tangmelody Jiménez Referring Unavailabl e RAJESH, Mrs. TANGMELODY JIMÉNEZ Primary Care Unavailabl e RAJESH, Mrs. TANGMELODY JIMÉNEZ Referring Unavailabl e RAJESH, Selma TELLOMELODY JIMÉNEZ Attending Unavailabl e RAJESH, Mrs. JAVED DEVIN Referring Unavailabl e RAJESH, Mrs. TANGMELODY JIMÉNEZ Attending Unavailabl e RAJESH, Mrs. TANGMELODY JIMÉNEZ [...] ECHAVARRIA Attending Unavailable ETHAN, RENETTA Referring Unavailable NEKENDY KLEINRE Attending Unavail able ELZBIETA ECHAVARRIA Attending Unavailable WISWELL KOREY Attending Unavailable WISWELL, KOREY Attending Unavailable SARAH PRADO Attending Unavailable RENETTA LANE Referring Unavailable BLADE FABIAN Attending Unavailable AYLA AMAYA Attending Unavailable RENETTA LANE Attending Unavailable RENETTA LANE Referring Unavailable Allergies Allergy Classification Reported Allergen(s) Allergy Type Date of Onset Reaction(s) Facility Penicillins (antibiotic) (1 source) Penicillins Drug Allergy 1 [facility] (20 sources) Penicillins; Translations: [PENICILLINS] Propensity to adverse reactions to drug (disorder) 1 [facility] Repository Medications Current Medications Medication Drug Class(es) [...] [Other abnormal glucose] Onset: 3 07-20-2023 Episodic Vital Signs Date Time Vital Sign Value Performing Clinician Faci lity 10-03-2023 11:02-0500 Body weight 91.99 kg Ayla Sorianoze SECONDARY MARKET MANAGER.CNM Work Phone: [facility] 10-03-2023 11:02-0500 Diastolic blood pressure 66 mm[Hg] Ayla Amaya SECONDARY MARKET MANAGER.CNM Work Phone: [facility] 10-03-2023 11:02-0500 Systolic blood pressure 110 mm[Hg] Ayla Boze SECONDARY MARKET MANAGER.CNM Work Phone: [facility] 09-19-2023 10:40-0500 Body weight 91.17 kg Korey Jones MD Work Phone: [facility] 09-19-2023 10:40-0500 Diastolic blood pressure 68 mm[Hg] Korey Jones MD Work Phone: [facility] 09-19-2023 10:40-0500 Systolic blood pressure 116 mm[Hg] Korey Jones MD Work Phone: [facility] 09-12-2023 09:24-0500 Body weight 89.09 kg Elzbieta Echavarria SECONDARY MARKET MANAGER.CNM Work Phone: [facility] 09-12-2023 09:24-0500 Diastolic blood pressure 68 mm[Hg] Elzbieta Echavarria SECONDARY MARKET MANAGER.CNM Work Phone: [facility] 09-12-2023 09:24-0500 Systolic blood pressure 108 mm[Hg] Elzbieta Echavarria SECONDARY MARKET MANAGER.CNM Work Phone: [facility] 07-20-2023 11:00-0500 Body weight 85.28 kg Donna Raines MD Work Phone: [facility] 07-20-2023 11:00-0500 Diastolic blood pressure 60 mm[Hg] Donna Raines MD Work Phone: [facility] 07-20-2023 11:00-0500 Systolic blood pressure 100 mm[Hg] Donna Raines MD Work Phone: [facility] 06-20-2023 11:14-0500 Body weight 82.83 kg Ayla Sorianots SECONDARY MARKET MANAGER.CNM Work Phone: [facility] 06-20-2023 11:14-0500 Diastolic blood pressure 60 mm[Hg] Ayla Plotts SECONDARY MARKET MANAGER.CNM Work Phone: [facility] 06-20-2023 11:14-0500 Systolic blood pressure 100 mm[Hg] Ayla Plotts SECONDARY MARKET MANAGER.CNM Work Phone: [facility] 06-14-2023 13:15-0500 Body weight 82.1 kg Blade Knoble SECONDARY MARKET MANAGER.BIN TRIPPER OPERATOR Work Phone: [facility] 06-14-2023 13:15-0500 Diastolic blood pressure 70 mm[Hg] Blade Knoble SECONDARY MARKET MANAGER.BIN TRIPPER OPERATOR Work Phone: [facility] 06-14-2023 13:15-0500 Heart rate 80 /min Blade Knoble SECONDARY MARKET MANAGER.BIN TRIPPER OPERATOR Work Phone: [facility] 06-14-2023 13:15-0500 Respiratory rate 14 /min Blade Knoble SECONDARY MARKET MANAGER.BIN TRIPPER OPERATOR Work Phone: [facility] 06-14-2023 13:15-0500 Systolic blood pressure 112 mm[Hg] Blade Knoble SECONDARY MARKET MANAGER.BIN TRIPPER OPERATOR Work Phone: [facility] 04-18-2023 10:31-0400 Body weight 79.47 kg Korey Jones MD Work Phone: [facility] 04-18-2023 10:31-0400 Diastolic blood pressure 60 mm[Hg] Korey Jones MD Work Phone: [facility] 04-18-2023 10:31-0400 Systolic blood pressure 102 mm[Hg] Korey Jones MD Work Phone: [facility] 03-07-2023 13:37-0400 Body weight 81.38 kg Ayla Amaya SECONDARY MARKET MANAGER.CNM Work Phone: [facility] 03-07-2023 13:37-0400 Diastolic blood pressure 62 mm[Hg] Ayla Plotts SECONDARY MARKET MANAGER.CNM Work Phone: [facility] 03-07-2023 13:37-0400 Systolic blood pressure 100 mm[Hg] Ayla Plotts SECONDARY MARKET MANAGER.CNM Work Phone: [facility] 01-26-2023 08:15-0400 Body height 160 cm Elzbieta Echavarria SECONDARY MARKET MANAGER.CNM Work Phone: [facility] 01-26-2023 08:15-0400 Body weight 81.19 kg Elzbieta Echavarria SECONDARY MARKET MANAGER.CNM Work Phone: [facility] 01-26-2023 08:15-0400 Diastolic blood pressure 60 mm[Hg] Elzbieta Echavarria SECONDARY MARKET MANAGER.CNM Work Phone: [facility] 01-26-2023 08:15-0400 Systolic blood pressure 108 mm[Hg] Elzbieta Echavarria SECONDARY MARKET MANAGER.CNM Work Phone: [facility] 04-08-2022 14:42-0400 Body weight 73.48 kg Ayla Plotts SECONDARY MARKET MANAGER.CNM Work Phone: [facility] 04-08-2022 14:42-0400 Diastolic blood pressure 60 mm[Hg] Ayla Plotts SECONDARY MARKET MANAGER.CNM Work Phone: [facility] 04-08-2022 14:42-0400 Systolic blood pressure 100 mm[Hg] Ayla Plotts SECONDARY MARKET MANAGER.CNM Work Phone: [facility] 04-08-2022 12:56-0400 Body height 161.29 cm Tello Porras Work Phone: [facility] Work Phone: 04-08-2022 12:56-0400 Body mass index (BMI) [Ratio] 28.33 kg/m2 Tello Porras Work Phone: [facility] Work Phone: 04-08-2022 12:56-0400 Body surface area Derived from formula 1.78 m2 Tello Porras Work Phone: [facility] Work Phone: 04-08-2022 12:56-0400 Body weight 73.71 kg Tello Porras Work Phone: [facility] Work Phone: 04-08-2022 12:56-0400 Diastolic blood pressure 64 mm[Hg] Tello Porras Work Phone: [facility] Work Phone: 04-08-2022 12:56-0400 Heart rate 74 /min Tello Porras Work Phone: [facility] Work Phone: 04-08-2022 12:56-0400 Systolic blood pressure 122 mm[Hg] Tello Schaferd Work Phone: [facility] Work Phone: 01-28-2022 13:08-0400 Body weight 77.47 kg Korey Jones MD Work Phone: [facility] 01-28-2022 13:08-0400 Diastolic blood pressure 64 mm[Hg] Korey Jones MD Work Phone: [facility] 01-28-2022 13:08-0400 Systolic blood pressure 100 mm[Hg] Korey Jones MD Work Phone: [facility] 12-18-2021 09:48-0400 Body weight 91.81 kg Korey Jones MD Work Phone: [facility] 12-18-2021 09:48-0400 Diastolic blood pressure 70 mm[Hg] Korey Jones MD Work Phone: [facility] 12-18-2021 09:48-0400 Systolic blood pressure 112 mm[Hg] Korey Jones MD Work Phone: [facility] 12-11-2021 09:05-0400 Body weight 89.81 kg Elzbieta Echavarria APRN.CNM Work Phone: [facility] 12-11-2021 09:05-0400 Diastolic blood pressure 68 mm[Hg] Elzbieta Echavarria SECONDARY MARKET MANAGER.CNM Work Phone: [facility] 12-11-2021 09:05-0400 Systolic blood pressure 108 mm[Hg] Elzbieta Echavarria SECONDARY MARKET MANAGER.CNM Work Phone: [facility] 12-02-2021 11:08-0400 Body weight 89.81 kg Sarah Prado MD Work Phone: [facility] 12-02-2021 11:08-0400 Diastolic blood pressure 74 mm[Hg] Sarah Prado MD Work Phone: [facility] 12-02-2021 11:08-0400 Systolic blood pressure 120 mm[Hg] Sarah Prado MD Work Phone: [facility] 11-18-2021 10:39-0400 Body weight 86.64 kg Donna Raines MD Work Phone: [facility] 11-18-2021 10:39-0400 Diastolic blood pressure 78 mm[Hg] Donna Raines MD Work Phone: [facility] 11-18-2021 10:39-0400 Systolic blood pressure 126 mm[Hg] Donna Raines MD Work Phone: [facility] 11-04-2021 09:37-0400 Body weight 86.18 kg Elzbieta Jericho ABDULLAHIN.CNM Work Phone: [facility] 11-04-2021 09:37-0400 Diastolic blood pressure 68 mm[Hg] Elzbieta Echavarria SECONDARY MARKET MANAGER.CNM Work Phone: [facility] 11-04-2021 09:37-0400 Systolic blood pressure 118 mm[Hg] Elzbieta Echavarria SECONDARY MARKET MANAGER.CNM Work Phone: [facility] 10-26-2021 11:00-0400 Body weight 85.28 kg Donna Raines MD Work Phone: [facility] 10-26-2021 11:00-0400 Diastolic blood pressure 68 mm[Hg] Donna Raines MD Work Phone: [facility] 10-26-2021 11:00-0400 Systolic blood pressure 120 mm[Hg] Donna Raines MD Work Phone: [facility] 03-05-2021 23:26-0400 Diastolic blood pressure 87 mm[Hg] Nelson Youssef MD Work Phone: [employer] Work Phone: 03-05-2021 23:26-0400 Heart rate 69 /min Nelson Youssef MD Work Phone: [employer] Work Phone: 03-05-2021 23:26-0400 Respiratory rate 16 /min Nelson Youssef MD Work Phone: [employer] Work Phone: 03-05-2021 23:26-0400 SaO2% (BldA) [Mass fraction] 99 % Nelson Youssef MD Work Phone: [employer] Work Phone: 03-05-2021 23:26-0400 Systolic blood pressure 121 mm[Hg] Nelson Youssef MD Work Phone: [employer] Work Phone: 03-05-2021 22:00-0400 Body temperature 98.6 [degF] Nelson Youssef MD Work Phone: [employer] Work Phone: Encounters Encounter Date Encounter Type Care Provider Facility Start: 10-03-2023 End: 10-03-2023 ambulatory AYLA AMAYA Facility:[facility] Start: 10-03-2023 End: 10-03-2023 Patient encounter procedure Ayla Amaya SECONDARY MARKET MANAGER.CNM Work Phone: OB/Gynecology Procedures Date Procedure Procedure Detail Performing Clinician Start: 09-19-2023 URINE OB DIP B/O Korey rhoades MD Work Phone: Start: 09-12-2023 URINE OB DIP B/O Rola Echavarria APRN.CNM Work Phone: Start: 07-20-2023 URINE OB DIP B/O Donna Raines MD Work Phone: Start: 06-20-2023 URINE OB DIP B/O Korey rhoades MD Work Phone: Start: 05-23-2023 Us preg uterus after 1st trimest 08/01 gestation Renetta Ethanclayton SLADEBIN TRIPPER OPERATOR Work Phone: Start: 04-18-2023 URINE OB DIP B/O Korey rhoades MD Work Phone: Start: 04-01-2023 Antibody screen KENDRA IBRAHIM Plan of Treatment Date Care Activity Detail Author Start: 06-14-2024 Covid-19 Vaccine (#1) Covid-19 Vacci ne (#1) [facility] Payers Date Payer Category Payer Unknown [id number] 2021 Unknown 2020 Medicaid [employer] [place] [place] [id number] 2020-Present [phone] [address] [address] [place] [address] Medicaid [id number] 2020 Medicaid [id number] 1999 Unknown [id number] 1999 Unknown [id number] 1999 Unknown [id number] 1999 Unknown [id number] Unknown [id number] Social History Date Type Detail Facility Tobacco smoking stat us MDIS Unknown if ever smoked [facility] Phone: Start: 2000 Sex Assigned At Not on file [facility] Phone: Start: 10-03-2021 End: 03-22-2022 Exposure to SARS-CoV-2 (event) Not sure [employer] Start: 05-11-2021 End: 04-08-2022 Tobacco smoking status NHIS Never smoked tobacco [facility] Work Phone: Start: 05-11-2021 End: 04-08-2022 Tobacco use and exposure Smokeless tobacco non-user [facility] Work Phone: Start: 10-07-2021 End: 04-08-2022 Alcohol intake Ex-drinker (finding) [facility] Start: 05-11-2021 History SDOH Alcohol Comment 2 times a month [facility] Start: 05-11-2021 Education 13 [facility] Start: 04-04-2021 [facility] Start: 01-26-2023 End: 03-07-2023 Never smoker Never smoker [facility] Start: 01-26-2023 End: 10-03-2023 Alcohol intake Current drinker of alcohol (finding) [facility] Start: 01-26-2023 Alcohol Comment rare [facility] Start: 01-26-2023 End: 03-07-2023 Tobacco use panel [facility] National Score (1-10 0), lower number is lower risk 91 [facility] Do you belong to any clubs or organizations such as mormonism groups, unions, fraternal or athletic groups, or school groups? No [facility] Are you now , , , , never or living with a partner? Never [facility] How often to you hav e a drink containing alcohol? Never [facility] Do you feel stress - tense, restless, nervous, or anxious, or unable to sleep at night because your mind is troubled all the time - these days [OSQ] Only a little [facility] (I/We) worried pepe er (my/our) food would run out before (I/we) got money to buy more. Never true [facility] Goals Date Patient Goal Desired Activity [...] apparent distress Abd: Gravid, non tender CE /2 ASSESSMENT/PLAN: 1. Encounter for supervision of high risk in third trimester, antepartum - ICD9: V23.9, ICD10: O09.93 (primary diagnosis) 2. Obesity during in third trimester - ICD9: 649.13, ICD10: O99.213 3. 39 weeks gestation of - ICD9: V22.2, ICD10: Z3A.39 P: 1) PTL precautions reviewed and when to call 2) RTO 1 week Ayla Amaya APRN.CNM documented in this encounter [facility] 10-03-2023 Instructions Ayla Amaya APRN.CNM - [...] make an easy pie crust in the cook italian style food. Add soaked dates to homemade nut butter for a sweet treat. Add dates to chandler homemade salad dressing. Add dates during easily with these yummy (paleo friendly) bars made from dates. What Is Red Raspberry [place] Tea? Red raspberry leaf tea comes from [...] , and too. How Much Red Raspberry [place] Tea to Drink? With your doctor or inspector multifocal lens s approval, start with 1 cup of [...] because of uterine cramping. Is Red Raspberry [place] Tea the Same as Raspberry [place] Tea? How About Plain Old Raspberry Tea? Sometimes. You really need to look at the ingredients to be sure. Note that there is no difference between red raspberry leaf and raspberry leaf. [employer] or [employer] Raspberry [place] Tea are two good brands. The red [...] of RRLT outlined in this article. The [employer] www.Changers I named this 'circuit' after my friend [...] sideways, 2 at a time, (have a park keeper downstairs of you!), take a walk outside [...] your knee, that closes the pelvis. Angela Carcamo: Circuit Creator - www.[email or web address].comsaint francis healthcarebirthcollective.c blas Hassan, CD, BDT (RALPH), LCCE, FACCE: Supporting Content - www.[employer] Elvirayanira Elliottpippa Alberto: Photography - www.[email or web address].[facility] Soo Parekh CD/CDT (SULEMAN): Print and Founder And Chief Technical Officer - www.[employer] Masterminds [employer] www.[email or web address].[facility] SEQUENTIAL SCREENINGS The [facility] offers sequential screenings for women who [...] It will require an appointment with our auto repair technician. This is not an ultrasound performed [...] the above symptoms, contact our office at [phone] and ask to speak with a nurse. After hours, you can call doctors registry at [phone] OR call [facility] at [phone] and ask to have the doctor iron installer paged. If you consider this an emergency, dial or go to your nearest emergency department. NEED HELP? Are you dealing with a violent or abusive relationship? Are you a victim of rape or sexual assult? Call [facility] ([place]) 24 hour Crisis Hotline: 598.263.6520 or 200-286-0655. MANUAL Your Guide to a Healthy manual is now on-line. Visit [email or web address].[email or web address]/HealthyPreg [place] to download your free copy documented in this encounter [facility] 09-29-2023 Note HNO ID: [id number] Author: ?, ?, ? Service: ? Author Type: ? Type: Progress Notes Filed: 09/29/2023 12:26 Note Text: POPULATION HEALTH NAVIGATION OUTREACH Action/FYI Patient called back and said that she will be using Kristel Meehan as electrical electronics engineer. Updated OB/PEDS field. OB/PEDS Patient Identified by Name and : YES, via phone Outreach Outcome/Action OB/PEDS field updated Did you use a PCP flex slot to schedule this appointment? N/A Navigation Signature: Vidhi Morin [facility] September 29, 2023 12:25 PM [facility] 09-29-2023 Note HNO ID: [id number] Author: ?, ?, ? Service: ? Author [...] this appointment? N/A Navigation Signature: Vidhi Morin [facility] September 29, 2023 12:00 PM [facility] 09-26-2023 Note Patient Outreach (IMELDA TNAV) PAULETTE MUHAMMAD ([id number]) 89 F Date Time Provider Department 09/26/23 VIDHI MORIN ([facility]) YUMIKO During your visit today, we recorded the following information about you: Juan Manuel ReynoldsVidhi 09/26/2023 11:40 AM Signed POPULATION HEALTH NAVIGATION [...] Outreach Payer: Payor: [place] / Plan: [employer] [place]ICAID [place] / Product Type: Medicaid [...] 12:03 PM Signed POPULATION HEALTH NAVIGATION OUTREACH Action/FYI 3rd attempt- Called and left another voicemail for patient to call me back directly. OB/PEDS Patient Identified by Name and : NO Outreach Outcome/Action Unable to reach patient: Left message Did you use a PCP flex slot to schedule this appointment? N/A Navigation Signature: Vidhi Daytonsher Reynolds September 29, 2023 12:00 PM Vidhi Samayoa 09/29/2023 12:26 PM Signed POPULATION HEALTH NAVIGATION OUTREACH Action/FYI Patient called back and said that she will be using Kristel Meehan as electrical electronics engineer. Updated OB/PEDS field. OB/PEDS Patient Identified by Name and : YES, via phone Outreach Outcome/Action OB/PEDS field updated Did you use a PCP flex slot to schedule this appointment? N/A Navigation Signature: Vidhi Daytonsher Reynolds September 29, 2023 12:25 PM Allergies [...] Encounter Status:Closed by VIDHI SAMAYOA on 09/26/23 [facility] 09-26-2023 Note HNO ID: [id number] Author: ?, ?, ? Service: ? Author Type: ? Type: Progress Notes Filed: 09/26/2023 11:40 Note Text: POPULATION HEALTH NAVIGATION OUTREACH Action/FYI Called and left a voicemail for patient to call me back directly Flaziohart message sent OB/PEDS Patient Identified by Name and : NO Outreach Outcome/Action Unable to reach patient: Left message Kashmihart message sent Did you use a PCP flex slot to schedule this appointment? N/A Reason for Outreach [place] Payer: Payor: [employer] MEDICAID / Plan: [employer] MEDICAID [place] / Product Type: Medicaid [...] Assessment due on 08/01/2023 Navigation Signature: Vidhi Morin [facility] September 26, 2023 11:40 AM [facility] 09-19-2023 Miscellaneous Notes SW- Some nausea and abdominal discomfort. No vb, lof, ctx's. Good FM PE: Gen- NAD, well appearing Abd- Soft, gravid, NT Ext- No edema See flowsheet A/p 37 wk gestation - Start pepcid - Cont acyclvor - Weekly visits and reviewed reasons to call Korey Jones DO documented in this encounter [facility] 09-19-2023 Instructions Shanel Rincon Ma - 09/19/2023 10:40 AM EST SEQUENTIAL SCREENINGS The [facility] offers sequential screenings for women who [...] It will require an appointment with our auto repair technician. This is not an ultrasound performed [...] the above symptoms, contact our office at [phone] and ask to speak with a nurse. After hours, you can call doctors registry at [phone] OR call [facility] at [phone] and ask to have the doctor iron installer paged. If you consider this an emergency, dial 9-1-7 or go to your nearest emergency department. NEED HELP? Are you dealing with a violent or abusive relationship? Are you a victim of rape or sexual assult? Call [facility] ([place]) 24 hour Crisis Hotline: 705.348.4632 or 434-035-8802. MANUAL Your Guide to a Healthy manual is now on-line. Visit 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 I have re-performed the HPI, Physical Examination, Assessment and Plan. Elzbieta Echavarria APRN.CNM documented in this encounter [facility] 09-12-2023 Instructions Rafael Miller Cma - 09/12/2023 9:17 AM EST SEQUENTIAL SCREENINGS The [facility] offers sequential screenings for women who [...] It will require an appointment with our auto repair technician. This is not an ultrasound performed [...] the above symptoms, contact our office at [phone] and ask to speak with a nurse. After hours, you can call doctors registry at [phone] OR call [facility] at [phone] and ask to have the doctor iron installer paged. If you consider this an emergency, dial 4-6-4 or go to your nearest emergency department. NEED HELP? Are you dealing with a violent or abusive relationship? Are you a victim of rape or sexual assult? Call [facility] ([facility] 24 hour Crisis Hotline: 645.698.6966 or 914-103-8642. MANUAL Your Guide to a Healthy manual is now on-line. Visit [email or web address]/HealthyPreg Taras to download your free copy documented in this encounter [facility] 07-20-2023 Miscellaneous Notes Addended by: DONNA [...] Donna Monae MD documented in this encounter [facility] 07-20-2023 Instructions Tricia Mello Ma - 07/20/2023 10:57 AM EST SEQUENTIAL SCREENINGS The [facility] offers sequential screenings for women who [...] It will require an appointment with our auto repair technician. This is not an ultrasound performed [...] the above symptoms, contact our office at [phone] and ask to speak with a nurse. After hours, you can call [facility] registry at [phone] OR call [facility] at [phone] and ask to have the doctor iron installer paged. If you consider this an emergency, dial 9-1-1 or go to your nearest emergency department. NEED HELP? Are you dealing with a violent or abusive relationship? Are you a victim of rape or sexual assult? Call [facility] ([place]) 24 hour Crisis Hotline: 781.415.3042 or 351-246-2285. MANUAL Your Guide to a Healthy manual is now on-line. Visit [email or web address]/HealthyPreg Taras to download your free copy documented in this encounter [facility] 06-20-2023 Miscellaneous Notes S: Paulette Muhammad [...] 2) RTO 4 weeks for LILIYA with lorri Amaya APRN.CNM documented in this encounter [facility] 06-20-2023 Instructions Vidhi Palacios MA - 06/20/2023 11:08 AM EST SEQUENTIAL SCREENINGS The [facility] offers sequential screenings for women who [...] It will require an appointment with our auto repair technician. This is not an ultrasound performed [...] the above symptoms, contact our office at [phone] and ask to speak with a nurse. After hours, you can call doctors registry at [phone] OR call [facility] at [phone] and ask to have the doctor iron installer paged. If you consider this an emergency, dial 2-7-4 or go to your nearest emergency department. NEED HELP? Are you dealing with a violent or abusive relationship? Are you a victim of rape or sexual assult? Call [facility] ([place]) 24 hour Crisis Hotline: 887.584.2604 or 561-602-1272. MANUAL Your Guide to a Healthy manual is now on-line. Visit [email or web address]/HealthyPreg Taras to download your free copy documented in this encounter [facility] 06-14-2023 Note HNO ID: [id number] Author: Blade Fabian 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 Service: ? Author Type: Nurse Practitioner Type: Progress Notes Filed: 06/14/2023 1:27 PM Note Text: Chief Complaint Patient presents with: [facility] Paulette Muhammad is a 22 year old female who presents here today for Above Complaints.. Patient presents to [facility]. Patient is currently 23 weeks and has [...] No history of dysuria, frequency or incontinence KEY BED INSTALLER: Negative for abnormal vaginal bleeding, abnormal vaginal [...] diet of 1000 mg/day for under 50, 1413-7779 mg/day for 50+ - Discussed need and [...] ICD9: 278.00, ICD10: E66.9 -currently Blade Fabian APRN.[facility] 06-14-2023 History of Presen t illness Narrative Chief Complaint Patient presents with: [facility] HPI Paulette Muhammad is a 22 year old female who presents here today for Above Complaints.. Patient presents to [facility]. Patient is currently 23 weeks and has [...] No history of dysuria, frequency or incontinence KEY BED INSTALLER: Negative for abnormal vaginal bleeding, abnormal vaginal [...] diet of 1000 mg/day for under 50, 5682-0432 mg/day for 50+ - Discussed need and [...] ICD9: 278.00, ICD10: E66.9 -currently Blade Fabian 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 documented in this encounter [facility] 05-30-2023 Miscellaneous Notes Dexter can cause bleeding and cramping in . Recommend pelvic rest until no further bleeding for 1 week. Thick discharge could be semen. Give PTL precautions 21w0d documented in this encounter [facility]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 Closed Auto-Generate d Referral 03/21/2023 03/20/2024 1 1 Reason Onset Date Comments Care 04/18/2023 Specialty Diagnoses / Procedures Referred By Contac t Referred To Contact [facility] Diagnoses 11 weeks gestation of Procedures OBSTETRIC ULTRASOUND WHI US PREG UTERUS AFTER 1ST TRIMEST GESTATION Renetta Lane, ALEXI.BIN TRIPPER OPERATOR [address] [place] [address] [facility] [address] [place] [address] Referral ID Status Reason Start Date Expiration Date V isits Requested Visits Authorized [id number] Closed Auto-Generate d Referral 03/21/2023 03/20/2024 1 [...] or prosecute any alcohol or drug abuse patient.[facility] the event this information is protected by the Federal Confidentiality of Alcohol and Drug Abuse Patient Records regulations: The Federal rules restrict any use of the information to criminally investigate or prosecute any alcohol or drug abuse patient.[facility] the event this information is protected by the Federal Confidentiality of Alcohol and Drug Abuse Patient Records regulations: The Federal rules restrict any use of the information to criminally investigate or prosecute any alcohol or drug abuse patient.[facility] the event this information is protected by the Federal Confidentiality of Alcohol and Drug Abuse Patient Records regulations: The Federal rules restrict any use of the information to criminally investigate or prosecute any alcohol or drug abuse patient.[facility] the event this information is protected by the Federal Confidentiality of Alcohol and Drug Abuse Patient Records regulations: The Federal rules restrict any use of the information to criminally investigate or prosecute any alcohol or drug abuse patient.[facility] the event this information is protected by the Federal Confidentiality of Alcohol and Drug Abuse Patient Records regulations: The Federal rules restrict any use of the information to criminally investigate or prosecute any alcohol or drug abuse patient.[facility] the event this information is protected by the Federal Confidentiality of Alcohol and Drug Abuse Patient Records regulations: The Federal rules restrict any use of the information to criminally investigate or prosecute any alcohol or drug abuse patient.[facility] the event this information is protected by the Federal Confidentiality of Alcohol and Drug Abuse Patient Records regulations: The Federal rules restrict any use of the information to criminally investigate or prosecute any alcohol or drug abuse patient.[facility] the event this information is protected by the Federal Confidentiality of Alcohol and Drug Abuse Patient Records regulations: The Federal rules restrict any use of the information to criminally investigate or prosecute any alcohol or drug abuse patient.[facility] Hospital[facility] the event this information is protected by the Federal Confidentiality of Alcohol and Drug Abuse Patient Records regulations: The Federal rules restrict any use of the information to criminally investigate or prosecute any alcohol or drug abuse patient.[facility] the event this information is protected by the Federal Confidentiality of Alcohol and Drug Abuse Patient Records regulations: The Federal rules restrict any use of the information to criminally investigate or prosecute any alcohol or drug abuse patient.[facility] Hospital[facility] the event this information is protected by the Federal Confidentiality of Alcohol and Drug Abuse Patient Records regulations: The Federal rules restrict any use of the information to criminally investigate or prosecute any alcohol or drug abuse patient.[facility] the event this information is protected by the Federal Confidentiality of Alcohol and Drug Abuse Patient Records regulations: The Federal rules restrict any use of the information to criminally investigate or prosecute any alcohol or drug abuse patient.[facility] the event this information is protected by the Federal Confidentiality of Alcohol and Drug Abuse Patient Records regulations: The Federal rules restrict any use of the information to criminally investigate or prosecute any alcohol or drug abuse patient.[facility] Hospital[facility] the event this information is protected by the Federal Confidentiality of Alcohol and Drug Abuse Patient Records regulations: The Federal rules restrict any use of the information to criminally investigate or prosecute any alcohol or drug abuse patient.[facility] Hospital[facility] the event this information is protected by the Federal Confidentiality of Alcohol and Drug Abuse Patient Records regulations: The Federal rules restrict any use of the information to criminally investigate or prosecute any alcohol or drug abuse patient.[facility] Hospital[facility] the event this information is protected by the Federal Confidentiality of Alcohol and Drug Abuse Patient Records regulations: The Federal rules restrict any use of the information to criminally investigate or prosecute any alcohol or drug abuse patient.[facility] the event this information is protected by the Federal Confidentiality of Alcohol and Drug Abuse Patient Records regulations: The Federal rules restrict any use of the information to criminally investigate or prosecute any alcohol or drug abuse patient.[facility] the event this information is protected by the Federal Confidentiality of Alcohol and Drug Abuse Patient Records regulations: The Federal rules restrict any use of the information to criminally investigate or prosecute any alcohol or drug abuse patient.[facility] HospitalIn the event this information is protected by the Federal Confidentiality of Alcohol and Drug Abuse Patient Records regulations: The Federal rules restrict any use of the information to criminally investigate or prosecute any alcohol or drug abuse patient.[facility] Hospital[facility] the event this information is protected by the Federal Confidentiality of Alcohol and Drug Abuse Patient Records regulations: The Federal rules restrict any use of the information to criminally investigate or prosecute any alcohol or drug abuse patient.[facility] Hospital[facility] the event this information is protected by the Federal Confidentiality of Alcohol and Drug Abuse Patient Records regulations: The Federal rules restrict any use of the information to criminally investigate or prosecute any alcohol or drug abuse patient.[facility] Hospital[facility] the event this information is protected by the Federal Confidentiality of Alcohol and Drug Abuse Patient Records regulations: The Federal rules restrict any use of the information to criminally investigate or prosecute any alcohol or drug abuse patient.[facility] the event this information is protected by the Federal Confidentiality of Alcohol and Drug Abuse Patient Records regulations: The Federal rules restrict any use of the information to criminally investigate or prosecute any alcohol or drug abuse patient.[facility] the event this information is protected by the Federal Confidentiality of Alcohol and Drug Abuse Patient Records regulations: The Federal rules restrict any use of the information to criminally investigate or prosecute any alcohol or drug abuse patient.[facility] the event this information is protected by the Federal Confidentiality of Alcohol and Drug Abuse Patient Records regulations: The Federal rules restrict any use of the information to criminally investigate or prosecute any alcohol or drug abuse patient.[facility] HospitalIn the event this information is protected by the Federal Confidentiality of Alcohol and Drug Abuse Patient Records regulations: The Federal rules restrict any use of the information to criminally investigate or prosecute any alcohol or drug abuse patient.[facility] HospitalIn the event this information is protected by the Federal Confidentiality of Alcohol and Drug Abuse Patient Records regulations: The Federal rules restrict any use of the information to criminally investigate or prosecute any alcohol or drug abuse patient.[facility] HospitalIn the event this information is protected by the Federal Confidentiality of Alcohol and Drug Abuse Patient Records regulations: The Federal rules restrict any use of the information to criminally investigate or prosecute any alcohol or drug abuse patient.[facility] FOR RECORDS PERTAINING TO PATIENTS WHO [...] BE BASED ON THE PRIMARY CLINICAL RECORDS. [facility] [employer] [facility]. provides no warranty or guarantee of the accuracy or completeness of information in this document.
[2023-10-05] MEDS: Lactated Ringers 1,000 ML 50 ML IV (06:30)
[2023-10-05] MEDS: Vancomycin HCl 1,750 MG in 0.9% Normal Saline (500mL Bag) 500 ML 250 MG IV (06:40)
--- NOTE | 2023-10-05 06:42 | PCM.HP.OB ---
HPI - General General Date of Admission: 10/05/23 HPI Narrative PAULETTE CAPPS, is a 22 F @ 39+ weeks who presents c/o ctx found to be 8cm on admission. pt reports no recent h/o HSV outbreaks. [facility] Medical History (Updated 10/05/23 @ 06:[address] Donna Khan MD) Genital herpes affecting Genital herpes affecting Home Medications acyclovir 400 mg tablet 400 mg PO TID 12/24/21 [History Last Taken 12/23/21 22:00] vitamins-iron fumarate 65 mg iron-folic acid 1 mg tablet 1 tab PO DAILY 12/24/21 [History Last Taken 12/23/21 10:00] Allergy/AdvReac Type Severity Reaction Status Date / Time Penicillins [PCN] Allergy Hives Verified 12/24/21 09:56 Surgical History History of surgery Social History Smoking Status: Never smoker History Elective abortions Hx Para 0 Spontaneous abortions Hx # Term Pregnancies Ectopic pregnancies Hx # Pregnancies Multiple births # of living children Vital Signs Vital Signs Vital Signs: 10/05/23 06:14 10/05/23 06:14 10/05/23 06:14 Temperature Temperature Source Tympanic Pulse Rate 97 Respiratory Rate Blood Pressure 108/73 BP Systolic 108 BP Diastolic 73 10/05/23 06:14 10/05/23 06:14 Temperature 98.0 F Temperature Source Pulse Rate Respiratory Rate 16 Blood Pressure BP Systolic BP Diastolic Weight Weight: 91.172 kg Body Mass Index (BMI) 35.6 Physical Exam Narrative No visible HSV lesions on external genitalia 8cm/90/-2 bulging membranes AROM for thick meconium Const alert and oriented x3 General Appearance: cooperative HEENT normocephalic GI GI Narrative: Gravid, non tender to palpation. OB / External & Speculum: external exam normal Extremity normal to inspection Skin no rashes or lesions noted Neuro oriented x3 and CN's II-XII intact bilaterally Psych Appearance: grossly normal Labs Labs Labs: Blood Type A POSITIVE Antibody Screen NEGATIVE Hct 37.8 % (37-47) Hgb 13.0 g/dL (12.0-15.0) Syphilis Total Ab Pending Assessment & Plan (1) Meconium in amniotic fluid affecting management of mother: (2) HSV-2 infection complicating : (3) Obesity affecting : (4) Positive GBS test: PLAN: Plan Admit to L&D [facility] FHR/TOCO Epidural if requested for pain Monitor VS Anticipate peds for delivery due to meconium Vancomycin for GBS but unlikely to be treated d/t advanced dilation
[2023-10-05 06:47] LABS: Absolute Lymphocyte Count 1.44 X10^3/uL (0.83-4.51); Absolute Neutrophil Count 10.9 X10^3/uL (2.0-7.7); Basophil# 0.03 X10^3/uL; Basophil% 0.2 % (0-1); Eosinophil# 0.08 X10^3/uL; Eosinophils% 0.6 % (0-5); Hematocrit 37.8 % (37-47); Lymphocyte # 1.44 X10^3/ul (0.83-4.51); Lymphocyte % 10.8 % (19-41); Mean Corp Hgb Conc 34.4 g/dL (32-36); Mean Corpuscular Hgb 30.5 pg (27.0-32.0); Mean Corpuscular Volume 88.7 fL (81-99); Mean Platelet Vol. 11.6 fl (6.2-12.0); Monocyte# 0.82 X10^3/uL; Monocyte% 6.1 % (0-10); NRBC Flagged by Analyzer 0 % (0-5); Neutrophil # 10.88 X10^3/uL (2.7-7.7); Neutrophil % 81.6 % (47-70); Platelet Count 169 K/mm3 (150-450); RBC Distribution Width CV 13.1 % (11.6-14.6); RBC Distribution Width SD 41.9 fl (35.1-43.9); Red Blood Count 4.26 M/mm3 (4.2-5.4); White Blood Count 13.4 K/mm3 (4.4-11.0)
[2023-10-05] MEDS: LACTATED RINGERS 500 ML 999 ML IV (06:48)
[2023-10-05] MEDS: Oxytocin 10 UNITS/ML Vial IM (07:22)
[2023-10-05] MEDS: Oxytocin 15 Units/NS 250ml 15 UNITS/250 ML IV.SOLN 83 UNITS IV (07:25)
--- NOTE | 2023-10-05 07:28 | EX.PCM.OBRPT ---
Vaginal Delivery Maternal Presentation Maternal Presentation: Active Labor Operative Information Date of Procedure: 10/05/23 Pre-Operative Diagnosis: 39.2 weeks, meconium fluid, hsv in , obesity in Post-Operative Diagnosis: same, live female infant Surgery / Procedure Performed: Spontaneous Vaginal Delivery Type of Anesthesia: None Estimated Blood Loss: 50 Time of Delivery: 07:19 Findings Description of Procedure: Patient progressed to fully dilated. Pushing in hands and knees position delivered the infant's head followed by the anterior shoulder and the rest the infant's body delivered without complication. Cord was short it was clamped after approximately 45seconds . Mouth and nose were suctioned due to meconium. The front office medical assistant and respiratory were present. Infant was vigorous at time of delivery. At this time the mother was then turned around in bed IM Pitocin was given placenta was delivered without complication. The vaginal and perineal tissue was evaluated. Tissue was intact. Small previous cleft noted at the right labia majora patient stated that was from her previous delivery. Presentation: Vertex Amniotic Membrane Rupture Type: Artificial Amniotic Fluid Description: Thick meconium Placental Delivery Description: Spontaneous Placenta Disposition: [facility] Specimen(s) Removed: placenta Cord Vessel Description: 3 Vessels Cord Entanglement: None A Gender: Female (1 minute): 9 (5 minute): 9 Delayed Cord Clamping: Yes Post Vaginal Delivery Medications Given After Delivery: IM Pitocin Episiotomy Description: None Laceration: None Complication Complications: None
[2023-10-05 09:46] LABS: Syphilis Antibodies Non-reactive
[2023-10-05] MEDS: 0.9% Saline Lock 10 ML Syringe IV (10:53)
[2023-10-05] MEDS: Benzocaine/Lanolin/Aloe Vera 1 SPRAY EACH TOPICAL (13:53)
[2023-10-05] MEDS: Acyclovir 200 MG Capsule 400 MG PO ×2 (13:53→21:40)
[2023-10-05] MEDS: Acetaminophen 500 MG Tablet 1000 MG PO ×2 (13:53→21:39)
[2023-10-06 00:50] VITALS: BP 113/77; PULSE 78; RESP 16; O2SAT 98
[2023-10-06 04:55] VITALS: BP 115/69; PULSE 81; RESP 16; O2SAT 98
[2023-10-06] MEDS: Acyclovir 200 MG Capsule 400 MG PO ×3 (05:25→20:32)
--- NOTE | 2023-10-06 08:16 | PN.OBGYN_ITS ---
Subjective Subjective Doing well. Breast feeding. Pain manageable. Tolerating PO. Ambulating without difficultly. Objective Data Objective Data Vital Signs: Vital Signs Temp Pulse Resp BP Pulse Ox O2 Del Method 98.5 F 81 16 115/69 98 Room Air 10/05/23 13:42 10/06/23 04:55 10/06/23 04:55 10/06/23 04:55 10/06/23 04:55 10/06/23 04:55 Oxygen Delivery Method Room Air Weight: 91.172 kg Body Mass Index (BMI) 35.6 Intake & Output: Intake and Output for Last 24 Hours 10/04/23 10/05/23 10/06/23 23:59 23:59 23:59 Intake Total 953.33 / 953.33 Output Total 650 / 650 Balance 303.33 / 303.33 Lab / Micro Data 10/05/23 06:30 Labs: Laboratory Results - last 24 hr 10/05/23 06:30: Syphilis Total Ab Non-reactive, Blood Type A POSITIVE, Antibody Screen NEGATIVE ROS Eyes Eyes: Denies blurry vision, change in vision or spots in vision ENT HEENT: Denies dizziness or headache(s) Cardiovascular Cardiovascular: Denies abdominal pain, chest pain or dyspnea Respiratory/Chest Respiratory/Chest: Denies cough, dyspnea, shortness of breath at rest or shortn ess of breath with exertion Gastrointestinal Gastrointestinal: Denies abdominal pain, diarrhea or vomiting Genitourinary Genitourinary: Denies change in urinary stream, difficulty urinating or dysuria Musculoskeletal Musculoskeletal: Reports none Integumentary Integumentary: Denies rash Neurologic Neurologic: Denies dizziness, headache(s), memory loss or weakness Physical Exam Const alert and no apparent distress Narrative: Fundus firm, below umbilicus.
[2023-10-06] MEDS: Acetaminophen 500 MG Tablet 1000 MG PO ×2 (09:29→20:32)
[2023-10-06 09:30] VITALS: BP 122/70; PULSE 77; RESP 16; TEMP 36.8
--- NOTE | 2023-10-06 13:54 | CASEMGMT ---
Social Work Assessment Labor and Delivery Unit Patient Address:[address] [place] [address]. [place] [address] Phone number: [phone] Date of Referral: 10/05/23 Time of Referral:? 1256 Referred By: Donna Khan Date of Intervention: ??10/06/23 Time of Intervention:? 1130 Reason for Referral:? Social issues and resources Tanika completed chart review and acknowledges social work consult due to concerns with current social circumstances and potential need for community resources. Tanika presented to bedside and introduced self to mother of baby (ARDEN Naidu) and her current boyfriend, Diallo Garcia. Sw completed psychosocial assessment and provided literature and resources for MOB to review. History obtained from: medical records, MOB Household composition: Currently residing in the home is Diallo MEDINA, ADAM's daughter Jessika Diaz (: 12/24/21) and now baby. Patient's parent/guardian status:? ?MOB states that she and the biological father of baby, ANJUM Diaz are no longer in a relationship. MOB states that things between her and CJ had been off and on, and when MOB discovered that she was 4 weeks and told CJ what her expectations of him were as a father and a partner, he left her. MOB states that when she told CJ that she was , CJ decided to leave and move to [place] to live with his mother. MOB states that at this time she is not sure what type of involvement CJ is intending to have with the baby, or Jacy. MOB states that CJ was not super involved when he was living with them, so she does not expect him to be involved at all now that he has moved. MOB states that he has reached out to her and has asked to see the baby when they are discharged to home. MOB states that CJ is aware that she is in a relationship with Diallo. - MOB denies any concerns of domestic violence or intimate partner violence. MOB states that she met Diallo on a dating website. MOB states that she and Diallo are still learning about each other, but so far MOB states that Diallo has been very supportive of her and has established a healthy and supportive relationship with her daughter. Medical History: ?ADAM is 22 year old female who is 2, para 1-now 2 following labor and delivery of . ADAM received routine care during with [facility]. ADAM presented to hospital on 10/05/23 and delivered baby via vaginal delivery at 39 weeks gestation. Baby girl, named Mary Lou, was born weighing 7lb 14oz and her apgars were 8 and 9 at one and five minutes of life respectfully. Baby will be followed by Dr. Meehan for pediatrics. ADAM states that she is breast feeding and it is going well. Educational Status:?ADAM reports that she graduated high school and obtained some college courses but did not graduate. ADAM denies any concerns with reading, learning or comprehension. 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 ADAM states that she works 4, 10's usually Tue, , Tue and Tuesday. Diallo is employed at [employer] at the [employer] and states that he typically works [employer]. Supplies: ADAM states that she has obtained all necessary baby supplies, using most of the same items she had for her first daughter, including: car seat, safe sleep space, clothes, diapers and wipes. ? Childcare/Caregiver(s):? ADAM is the primary caregiver to baby, along with help from Diallo who was observed to be supportive to ADAM. ADAM states that when she is working she has an in-home hand cloth cutter that her daughters will go to. ADAM states that her hand cloth cutter is one of the closest people she has and she is very thankful to have her. Transportation:?? ADAM drives and has reliable means of transportation. Programs/Agencies Involved: ??ADAM is connected to insurance through [employer]. ADAM is also connected to mental health supports through [facility]. ? Children Services/Legal Issues:??? No history of involvement, no issues or concerns at this time warranting referral to be made Behavioral Health Issues: ??Mental Health History:?ADAM states that she has not been diagnosed with any mental health diagnoses. ADAM states that after her first daughter was born she did experience some rage/ anger, but this was all directed towards CJ who would not help her during her period, or did not help to care for the baby. ADAM states that she feels good now, is not worried about experiencing baby blues or any symptoms. ADAM states that Diallo is a good support for her and will be able to recognize when she is struggling. ? Substance Use History:ADAM denies substance use prior to and during . ?? Family History:??MOB denies family history of addiction/ substance use or significant mental health diagnoses such as bipolar or schizophrenia. ??? Drug Screens: ?No drug screens observed during chart review. Family/Social Stressors:? ADAM identifies that the relationship with CJ is a stressful issue at this time. MOB states that she is not going to worry about what that looks like at this time, but will focus her attention on bonding and caring for her . Support Systems: ADAM states that Diallo and her mom are her biggest supports at this time. Depression/Shaken Baby/Safe Sleeping:? Sw educated ADAM and Diallo on signs and symptoms of baby blues and depression and anxiety. Sw encouraged ADAM to utilize the supports she is currently connected to through [facility]. Sw educated ADAM and Diallo on shaken baby prevention and ABCs of safe sleep space. ADAM and Diallo expressed understanding. ASSESSMENT:? MOB and baby admitted following labor and delivery. MOB in a relationship at this time with a new partner that she has been with since July. MOB states that biological father of baby will be involved limitedly, she is not certain if he plans on establishing paternity or not. MOB states that she is not going to foce biological father to establish paternity if he doesn't plan on it. MOB states that she has supports in place with her current boyfriend and her mother. MOB talkative and engaging during completion of psychosocial assessment. PLAN:? MOB and baby to be discharged when medically ready. ?No other services requested or indicated. Mervat Tompkins, SAND BLASTER, MANAGER [employer]
[2023-10-06 14:00] VITALS: BP 114/69; PULSE 78; RESP 16; TEMP 36.9
[2023-10-06] MEDS: Benzocaine/Lanolin/Aloe Vera 1 SPRAY EACH TOPICAL (14:29)
--- NOTE | 2023-10-06 18:35 | PCM.DC.SUM ---
Providers Date of Admission: 10/05/23 Date of Discharge: 10/06/23 Primary Care Physician: No Primary Care Phys Reason For Visit: VAG DELIVERY Diagnosis Discharge Diagnosis (1) (spontaneous vaginal delivery): Status: Acute Code(s): O80 - Encounter for full-term uncomplicated delivery (2) Meconium in amniotic fluid affecting management of mother: Status: Acute Code(s): O36.8990 - Maternal care for other specified problems, unspecified trimester, not applicable or unspecified Qualifiers: Fetus number: single or unspecified fetus Trimester: third trimester Qualified Code(s): O36.8930 - Maternal care for other specified problems, third trimester, not applicable or unspecified (3) HSV-2 infection complicating : Status: Acute Code(s): O98.519 - Other viral diseases complicating , unspecified trimester; B00.9 - Herpesviral infection, unspecified Qualifiers: Trimester: third trimester Qualified Code(s): O98.513 - Other viral diseases complicating , third trimester; B00.9 - Herpesviral infection, unspecified (4) Obesity affecting : Status: Acute Code(s): O99.210 - Obesity complicating , unspecified trimester Qualifiers: Obesity type affecting : other obesity due to excess calories Trimester: third trimester Qualified Code(s): O99.213 - Obesity complicating , third trimester; E66.09 - Other obesity due to excess calories (5) Positive GBS test: Status: Acute Code(s): B95.1 - Streptococcus, group B, as the cause of diseases classified elsewhere Medications at Discharge Home Medications acyclovir 400 mg tablet 400 mg PO TID 12/24/21 vitamins-iron fumarate 65 mg iron-folic acid 1 mg tablet 1 tab PO DAILY 12/24/21 Hospital Course Operations None Procedures None Summary of Care Provided Minutes Spent on Discharge: 20 Hospital Course: Patient presented in active labor. She had an uncomplicated vaginal delivery. Discharged breast feeding Physical Exam Const alert and no apparent distress Narrative: Fundus firm, below umbilicus. Weight / BMI Weight Weight: 91.172 kg Body Mass Index (BMI) 35.6 ABG / Lab / Microbiology Data 10/05/23 06:30 D/C Instructions Discharge Diet: No restrictions May resume sexual activity in: 6 weeks Call your doctor if your incision/area has: Continuous Slow Oozing, Sudden Increased Bleeding, Foul Smelling Discharge and Swelling at the incision site Call your doctor if you observe: Fever of 101 or Higher and Inability to urinate Please Follow Up With: Trish Ford MD When: Follow up with our office in 1-2 and 6 weeks or as needed. [phone] Meaningful Use Info Meaningful Use Diagnoses (Choose all that apply): None applicable Discharge Plan Admission Admit Date/Time: 10/05/23 06:20 Primary Reason for Your Visit: Labor and delivery Attending Provider: Donna Khan Primary Care Provider: Care Physician,No Primary Instructions Patient Instructions: After a Vaginal Discharge Orders/Prescriptions Prescriptions: No Action vit-iron fum-folic ac 65 mg iron- 1 mg Tablet 1 tab PO DAILY acyclovir 400 mg Tablet 400 mg PO TID Referrals / Follow Up: Clara Cage MD [Med Staff - Active Staff] - Care Physician,No Primary [Primary Care Provider] - Disposition Disposition (needs filled in before D/C Order can be placed): Home, Self Care
[2023-10-06 19:27] VITALS: BP 112/72; PULSE 72; RESP 16; TEMP 36.8; O2SAT 98
[2023-10-06] MEDS: Ibuprofen 600 MG Tablet PO (20:32)
--- NOTE | 2023-10-10 09:44 | NURSING ---
Follow up phone call attempted, no answer. Voicemail left with unit phone number if patient has questions or concerns.
== END 2023-10-06 20:55 | disposition home or self-care (01) | DRG 560 ==
LOC: WPOUT 06:25 → WP 06:25
PROVIDERS: Admitting Provider Obstetrics & Gynecology; Referring Provider Obstetrics & Gynecology; Visit Provider Obstetrics & Gynecology
DX: O99.824 Streptococcus B carrier state complicating childbirth (principal); Z37.0 Single live birth; O98.32 Other infections with a predominantly sexual mode of transmission complicating childbirth; E66.09 Other obesity due to excess calories; O99.214 Obesity complicating childbirth; A60.00 Herpesviral infection of urogenital system, unspecified; O77.0 Labor and delivery complicated by meconium in amniotic fluid; Z3A.39 39 weeks gestation of pregnancy; Z79.899 Other long term (current) drug therapy
CPT/HCPCS: 59025; 59050; 85025; 86780; 86850; 86900; 86901; 99221; J7040; J7120; A4216; G0378